=== PATIENT | female | born 1935 | race Caucasian/White ===

== ENCOUNTER 2019-11-19 10:30 | Inpatient (IN) | payer MEDICARE, MEDICAID, SELFPAY ==
[2019-11-19] VITALS (40 sets, daily range): BP systolic 96–168; BP diastolic 51–150; PULSE 50–62; RESP 13–29; TEMP 36.3–37.7; O2SAT 83–99; BMI 35.3
--- NOTE | ~2019-11-19 | XR_ITS ---
EXAMINATION: XR chest 1V portable DATE: 11/19/2019 11:39 INDICATION: Shortness of breath. TECHNIQUE: A single frontal view of the chest was obtained. COMPARISON: Chest single view 07/09/2019, CT abdomen and pelvis 05/22/2019 FINDINGS: There is chronic elevation of right hemidiaphragm. There are airspace opacities in the mid and lower lung zones with a perihilar predominance. There are small pleural effusions. No pneumothora x. Cardiomegaly is noted. IMPRESSION: 1. Airspace opacities in the mid and lower lung zones with a perihilar predominance, consistent with pulmonary edema or less likely pneumonia. 2. Small pleural effusions. 3. Cardiomegaly. Reviewed, dictated and finalized at location A. IMPRESSION: 1. Airspace opacities in the mid and lower lung zones with a perihilar predomin ance, consistent with pulmonary edema or less likely pneumonia. 2. Small pleural effusions. 3. Cardiomegaly.
--- NOTE | 2019-11-19 10:40 | ECG_ITS ---
Measurements Intervals Burt Rate: 59 P: ID: 0 QRS: 38 QRSD: 164 T: -16 QT: 473 QTc: 470 Interpretive Statements ATRIAL FLUTTER WITH SLOW VENTRICULAR RESPONSE RIGHT BUNDLE BRANCH BLOCK BASELINE ARTIFACT- I, II, III, AVR, AVL, AVF, V1-V3 ABNORMAL ECG Electronically Signed On 11-19-2019 14:08:31 CDT by Dane Timmons D.O.
[2019-11-19] MEDS: methylPREDNISolone SOD SUCC 125 MG VIAL 80 MG IV PUSH (10:45)
--- NOTE | 2019-11-19 10:45 | ED.GENADULT ---
HPI - General Adult General Chief complaint: Shortness of Breath/Dyspnea <Mau España PA-C - Last Filed: 11/19/19 12:41> Stated complaint: SOB <Mau España PA-C - Last Filed: 11/19/19 12:41> Time Seen by Provider: 11/19/19 10:31 <NEGRA Franz Last Filed: 11/19/19 12:41> Source: patient, EMS and old records reviewed <NEGRA Franz Last Filed: 11/19/19 12:41> Mode of arrival: EMS <NEGRA Franz Last Filed: 11/19/19 12:41> Limitations: clinical condition <NEGRA Franz Last Filed: 11/19/19 12:41> History of Present Illness HPI narrative: Patient is an 84-year-old female sent over from a long-term for evaluation of dyspnea patient with history of COPD and home oxygen use reportedly staff went into the room today found the patient to be dyspneic having difficulty breathing and speaking. On arrival patient on high flow O2 still having difficulty moving oxygen patient denying any pain. Patient denies URI symptoms. On arrival patient in acute respiratory distress. Patient is a DNR. Patient has had similar occurrences with heart failure and hypercarbia in the past secondary to heart failure and COPD <NEGRA Franz Last Filed: 11/19/19 12:41> Related Data Home medications: Home Medications Medication Instructions Recorded Confirmed GlucaGen HypoKit 1 mg SUBCUT Q20M PRN 07/04/19 07/09/19 Pricilla See Rx Instructions .ROUTE .COMPLEX 07/04/19 07/09/19 Metamucil 1 tbsp PO DAILY 07/04/19 07/09/19 Xarelto 20 mg PO QPM 07/04/19 07/09/19 acetaminophen [Tylenol] 650 mg PO QID PRN 07/04/19 07/09/19 amiodarone 200 mg PO DAILY 07/04/19 07/09/19 atorvastatin 20 mg PO HS 07/04/19 07/09/19 baclofen 10 mg PO BID 07/04/19 07/09/19 bumetanide 1 mg PO DAILY 07/04/19 07/09/19 cholecalciferol (vitamin D3) 1,000 unit PO DAILY 07/04/19 07/09/19 [Vitamin D3] fluticasone propionate 1 spray INTRANASAL DAILY 07/04/19 07/09/19 gabapentin 100 mg PO TID 07/04/19 07/09/19 gabapentin 800 mg PO TID 07/04/19 07/09/19 loratadine 10 mg PO HS 07/04/19 07/09/19 metoprolol succinate 50 mg PO DAILY 07/04/19 07/09/19 multivitamin with minerals [Daily 1 tablet PO DAILY 07/04/19 07/09/19 Multivitamin-Minerals] pantoprazole 40 mg PO QAM 07/04/19 07/09/19 polyethylene glycol 3350 17 g PO DAILY 07/04/19 07/09/19 potassium chloride 40 meq PO DAILY 07/04/19 07/09/19 ropinirole 0.5 mg PO HS 07/04/19 07/09/19 <Mau España PA-C - Last Filed: 11/19/19 12:41> Allergies/adverse reactions: Allergies Allergy/AdvReac Type Severity Reaction Status Date / Time Sulfa (Sulfonamide Allergy Unknown Unknown Verified 11/19/19 10:49 Antibiotics) sulfamethizole Allergy Unknown Unknown Verified 11/19/19 10:49 sulfamethoxazole Allergy Unknown Unknown Verified 11/19/19 10:49 tramadol Allergy Unknown Unknown Verified 11/19/19 10:49 trimethoprim Allergy Unknown Unknown Verified 11/19/19 10:49 <Mau España PA-C - Last Filed: 11/19/19 12:41> Review of Systems Review of Systems: Narrative: Limited due to clinical condition Denies chest pain abdominal pain nausea vomiting or fever <Mau España PA-C - Last Filed: 11/19/19 12:41> Respiratory: Respiratory: Reports dyspnea and Reports wheezing <Mau España PA-C - Last Filed: 11/19/19 12:41> [facility] Past Medical History Medical History: Medical History (HFpEF) heart failure with preserved ejection fraction A-fib Angina at rest Aortic valve stenosis, acquired Bronchitis Cataracts, bilateral CHF (congestive heart failure) Diastolic Chronic atrial fibrillation, unspecified Persistent Colon cancer COPD (chronic obstructive pulmonary disease) Diverticulitis DVT (deep venous thrombosis) Falls GERD (gastroesophageal reflux disease) H/O coronary angiogram 2017: small vessel disease only HTN (hypertension) Hx of malignant neopla
[2019-11-19 11:05] LABS: Basophils Absolute Auto 0.1 K/mm3 (0.0-0.1); Basophils Percent Auto 0.6 % (0.2-1.2); Eosinophils Absolute Auto 0.1 K/mm3 (0-0.3); Eosinophils Percent Auto 0.4 % (0-4.4); Hematocrit 38.8 % (37.0-47.0); Hemoglobin 11.3 g/dL (12.0-15.0); Immature Granulocyte Absolute 0.11 K/mm3 (0.00-0.031); Immature Granulocyte Percent A 0.9 % (0-0.5); Lymphocytes Absolute Auto 2.31 K/mm3 (0.9-3.2); Lymphocytes Percent Auto 18.7 % (18.3-44.2); Mean Corpuscular HGB Conc 29.1 g/dl (32-36); Mean Corpuscular Hemoglobin 28.5 pg (26-34); Mean Platelet Volume 10.5 fl (7.4-10.4); Monocytes Absolute Auto 1.4 K/mm3 (0.1-0.6); Monocytes Percent Auto 11.5 % (2.6-8.5); Neutrophils Absolute Auto 8.4 K/mm3 (1.3-6.7); Neutrophils Percent Auto 67.9 % (45.5-73.1); Platelet Count Result 242 k/mm3 (150-375); Red Blood Count 3.96 M/mm3 (4.2-5.4); Red Cell Distribution Width 17.1 % (11.5-14.5); White Blood Count 12.3 K/mm3 (4.5-10.0)
[2019-11-19 11:12] LABS: Anisocytosis 1+ (NORMAL); Hypochromasia 1+ (NORMAL); Platelet Estimate Adequate (Adequate); Stomatocytes 1+ (NORMAL)
[2019-11-19 11:17] LABS: INR 1.6; Partial Thromboplastin Time 33.6 SECONDS (22.3-36.8)
[2019-11-19 11:18] LABS: Blood Urea Nitrogen 22 mg/dL (7-17); Calcium 8.5 mg/dL (8.4-10.2); Carbon Dioxide 33 mmol/L (22-30); Chloride 93 mmol/L (98-107); Estimated CRCL calculation 61 ml/min; Estimated Glomerular Filt Rate > 60; Glucose 278 mg/dL (65-105); Lactic Acid Reflex 3.3 mmol/L (0.7-2.1); Potassium 4.7 mmol/L (3.4-5.0); Sodium 136 mmol/L (137-145)
[2019-11-19 11:21] LABS: Alveolar/Arterial O2 Gradient 378.2 mmHg; Base Excess ABG -4.2 mEq/l (+/-2.0); Carboxyhemoglobin 0.8 % THb (0-2.0); Fractional Inspired Oxygen 80 %; HCO3 ABG 26.5 mEq/l (22.0-26.0); Methemoglobin ABG 0.2 %THb (0-1.5); Oxygen Content ABG 16.5 %vol (16.0-22.0); Oxygen Saturation ABG 95.7 % (95.0-100.0); Oxyhemoglobin 95.4 % THb (90.0-100.0); PO2 ABG 105.9 mmHg (80.0-100.0); PO2 FiO2 Ratio Arterial Blood 1.32 %; Reduced Hemoglobin 3.6 %THb (0-5.0); Total Hemoglobin 12.2 g/dL (12.0-18.0)
[2019-11-19 11:30] LABS: NT Pro B Type Natriuretic Pept 4670 PG/ML (5-100); Troponin I 0.012 ng/mL (0.000-0.034)
[2019-11-19 11:39] LABS: pH ABG 7.127 (7.350-7.450)
[2019-11-19 11:40] LABS: Modified Allen's Test Pass; PCO2 ABG 82.2 mmHg (35.0-45.0); Site Drawn RIGHT RADIAL
[2019-11-19 11:41] LABS: Device NON-REBREATHER MASK
[2019-11-19 11:45] LABS: Alanine Aminotransferase 79 U/L (4-35); Albumin Level 4.3 g/dL (3.5-5.1); Alkaline Phosphatase 88 U/L (38-126); Aspartate Amino Transferase 84 U/L (14-36); Bilirubin,Total 0.9 mg/dL (0.2-1.3)
[2019-11-19] MEDS: FUROSEMIDE INJ 40 MG/4 ML VIAL IV PUSH (12:00)
[2019-11-19 12:10] LABS: CRP 1.1 mg/dL (<1.0); Lactate Dehydrogenase 783 U/L (313-618)
[2019-11-19 14:02] LABS: Reflex Lactic Acid Yes or No Add Lactic
[2019-11-19 15:42] LABS: Add Urine Microscopic? YES; Appearance Urine Clear (Clear); Bacteria Urine 1+ /hpf; Bilirubin Urine Negative (Negative); Blood Urine Negative (Negative); Color Urine Yellow (Yellow); Glucose Urine UA 3+ mg/dL (Negative); Hyaline Casts Urine 20-29 /lpf; Ketones Urine Negative (Negative); Leukocyte Esterase Ur Negative LEU/UL (Negative); Mucus Urine Rare /lpf; Nitrate Urine Negative (Negative); Protein Urine 2+ mg/dL (Negative); RBC Urine 0-2 /hpf (0-2); Specific Grav Ur 1.011 (1.001-1.035); Squamous Epithelial Cell Urine Rare /hpf (Few); Urobilinogen Urine Negative mg/dL (<2.0); WBC Urine 0-3 /hpf
[2019-11-19 16:18] LABS: Lactic Acid 3.5 mmol/L (0.7-2.1)
[2019-11-19 16:44] LABS: Glucose Point of Care 140 (65-105)
[2019-11-19 17:18] LABS: Base Excess ABG 6.3 mEq/l (+/-2.0); Carboxyhemoglobin 0.3 % THb (0-2.0); Fractional Inspired Oxygen 40 %; HCO3 ABG 32.5 mEq/l (22.0-26.0); Methemoglobin ABG 0.3 %THb (0-1.5); Oxygen Content ABG 15.7 %vol (16.0-22.0); Oxygen Saturation ABG 91.5 % (95.0-100.0); Oxyhemoglobin 91.2 % THb (90.0-100.0); PCO2 ABG 54.3 mmHg (35.0-45.0); PO2 ABG 62.8 mmHg (80.0-100.0); PO2 FiO2 Ratio Arterial Blood 1.57 %; Reduced Hemoglobin 8.2 %THb (0-5.0); Total Hemoglobin 12.2 g/dL (12.0-18.0); pH ABG 7.395 (7.350-7.450)
[2019-11-19 17:19] LABS: Device HIGH FLOW THERAPY; Site Drawn LEFT BRACHIAL
--- NOTE | 2019-11-19 21:45 | PM.IMHP ---
H&P: HPI History of Present Illness Chief complaint: Shortness of breath. Narrative: Sole Al is female with multiple medical problems including chronic respiratory failure, critical aortic valve stenosis, diastolic congestive heart failure, chronic atrial fibrillation, and several other comorbidities who presented to the emergency department earlier this morning via EMS from [facility] with complaints of shortness of breath. The patient is alert and oriented x4 at the time my evaluation, but she was confused earlier this morning, presumably due to hypercarbia. As such, she is not able to provide me with much in the way of history regarding what happened this morning. According to the EMS run report, the patient refused breakfast this morning and when they went to check on her she was apparently having difficulty breathing, was cool, clammy, and diaphoretic. Her ABG on arrival to the emergency department demonstrated a pH of 7.127 and pCO2 of 82.2. Because she is now a person under investigation, and per hospital policy, we are unable to use a BiPAP, she has been started on Airvo high-flow nasal cannula. Repeat blood gas did show improvement in her pCO2. At the time my evaluation, she reports that her shortness of breath is somewhat improved. She denies fever, chills, and sweats. She has not had a headache. She denies sinus congestion, rhinorrhea, otalgia, and odynophagia. Earlier today she had mild chest tightness due to work of breathing, but that has improved somewhat. She has had a mild cough, but is nonproductive. She has chronic edema, but has been worse recently. She believes that is due to the fact that she is no longer wearing compression socks. Her appetite has been good and she denies nausea and vomiting. No diarrhea. No dysuria. She denies recent travel and sick contacts. Review of Systems Review of Systems: Narrative: All systems were reviewed and are unremarkable except as documented in the HPI. [facility] Past Medical History Medical History (Updated 11/20/19 @ 00:55 by Lenore Santana PA-C) (HFpEF) heart failure with preserved ejection fraction Chronic atrial fibrillation On amiodarone and metoprolol. Anticoagulated with Xarelto. Colon cancer COPD (chronic obstructive pulmonary disease) Critical aortic valve stenosis With a valve area of 0.6 centimeter squared. She continues to decline surgical intervention. Diverticulitis DVT (deep venous thrombosis) GERD (gastroesophageal reflux disease) H/O coronary angiogram 2017: small vessel disease only Hyperlipidemia Hypertension, essential Obstructive sleep apnea treated with BiPAP Peripheral neuropathy Restless leg syndrome Type 2 diabetes mellitus Hemoglobin A1c was 5.8% in June 2019. Urinary incontinence Surgical History Surgical History H/O hysterectomy for benign disease History of hysterectomy History of partial colectomy History of spinal surgery History of tonsillectomy Hx of cataract removal with insertion of prosthetic lens Family History Family History Sibling Diabetes mellitus Patient's sister is Patient's brother is Family history of cardiovascular disease Acute myocardial infarction Family history of rheumatic fever Father Patient's father is Mother Acute myocardial infarction, Onset Age: 71 Other Family history of arthritis Family history of malignant neoplasm Family history of rheumatoid arthritis Hypertension Social History Social History (Updated 11/20/19 @ 01:03 by Lenore Santana PA-C) Social History: The patient is . She is a resident at [facility]. She has 4 children, 1 in his 30s by electrocution. 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 She
[2019-11-19 22:51] LABS: Lactic Acid 2.8 mmol/L (0.7-2.1)
[2019-11-20] VITALS (17 sets, daily range): BP systolic 105–132; BP diastolic 48–85; PULSE 59–90; RESP 20–26; TEMP 36.7–37.3; O2SAT 95–100
[2019-11-20 03:35] LABS: Alveolar/Arterial O2 Gradient 216.2 mmHg; Base Excess ABG 11.8 mEq/l (+/-2.0); Fractional Inspired Oxygen 50 %; HCO3 ABG 38.4 mEq/l (22.0-26.0); Oxygen Content ABG 17.2 %vol (16.0-22.0); Oxygen Saturation ABG 94.7 % (95.0-100.0); Oxyhemoglobin 93.8 % THb (90.0-100.0); PCO2 ABG 59.5 mmHg (35.0-45.0); PO2 ABG 73.4 mmHg (80.0-100.0); PO2 FiO2 Ratio Arterial Blood 1.47 %; pH ABG 7.428 (7.350-7.450)
[2019-11-20 03:37] LABS: Device HIGH FLOW THERAPY; Modified Allen's Test Pass; Site Drawn LEFT RADIAL
[2019-11-20] MEDS: ACETAMINOPHEN 325 MG TABLET 650 MG PO ×2 (04:03→22:36)
[2019-11-20 04:40] LABS: Hemoglobin 11.1 g/dL (12.0-15.0); Mean Corpuscular Volume 93.4 fl (80-100); Mean Platelet Volume 10.1 fl (7.4-10.4); Platelet Count Result 221 k/mm3 (150-375); Red Blood Count 3.96 M/mm3 (4.2-5.4); White Blood Count 7.4 K/mm3 (4.5-10.0)
[2019-11-20 05:07] LABS: Lactic Acid 1.6 mmol/L (0.7-2.1)
[2019-11-20 05:14] LABS: Alanine Aminotransferase 76 U/L (4-35); Alkaline Phosphatase 86 U/L (38-126); Aspartate Amino Transferase 64 U/L (14-36); Bilirubin,Total 0.7 mg/dL (0.2-1.3); Blood Urea Nitrogen 20 mg/dL (7-17); Calcium 8.9 mg/dL (8.4-10.2); Carbon Dioxide > 40 mmol/L (22-30); Chloride 93 mmol/L (98-107); Estimated CRCL calculation 69 ml/min; Estimated Glomerular Filt Rate > 60; Glucose 124 mg/dL (65-105); Magnesium 1.8 mg/dL (1.6-2.3); Phosphorus 3.3 mg/dL (2.5-4.5); Potassium 4.1 mmol/L (3.4-5.0); Sodium 139 mmol/L (137-145)
[2019-11-20] MEDS: BACLOFEN 10 MG TABLET PO ×2 (09:03→18:32)
[2019-11-20] MEDS: BUMETANIDE INJ 1 MG/4 ML VIAL IV PUSH ×2 (09:03→18:28)
[2019-11-20] MEDS: AMIODARONE HCL 200 MG TABLET PO (09:04)
[2019-11-20] MEDS: PANTOPRAZOLE 40 MG TABLET PO (09:05)
[2019-11-20] MEDS: METOPROLOL SUCCINATE EXT REL 50 MG TABCR PO (09:05)
[2019-11-20] MEDS: LORATADINE 10 MG TABLET PO (09:05)
[2019-11-20] MEDS: THERAPEUTIC MULTIVITAMINS/MINERALS TAB (*BKC) 1 TABLET PO (09:05)
[2019-11-20] MEDS: CHOLECALCIFEROL 1,000 UNIT TABLET 1000 UNITS PO (09:06)
[2019-11-20] MEDS: FLUTICASONE PROPIONATE 0.05% NA SPR 16 GM BTL (*BKC) 1 SPRAY NASAL (09:06)
[2019-11-20] MEDS: GABAPENTIN 300 MG CAPSULE 900 MG PO ×3 (09:06→18:28)
[2019-11-20] MEDS: PSYLLIUM POWDER PACKET 1 PACKET PO (09:07)
[2019-11-20 09:38] LABS: Glucose Point of Care 113 (65-105)
[2019-11-20 14:13] LABS: Glucose Point of Care 103 (65-105)
--- NOTE | 2019-11-20 15:33 | PM.IMPN ---
Progress Note: A&P Assessment and Plan (1) Acute respiratory failure with hypoxia and hypercarbia: Code(s): J96.01 - Acute respiratory failure with hypoxia; J96.02 - Acute respiratory failure with hypercapnia Status: Acute Assessment and Plan: Presumably due to congestive heart failure exacerbation, but cannot rule out underlying pneumonia. She will be empirically treated with antibiotics. Patient also carries a diagnosis of COPD, however was never really a smoker. Per hospital policy, she was unable to be placed on BiPAP as she is a person under investigation for COVID-19. Repeat blood gas significantly improved; continue Airvo. 11/20/19 15:33 Patient 84-year-old female with history COPD congestive heart failure severe aortic stenosis patient is a resident of nursing and was quite somnolent and confused hypoxic patient was sent to emergency department for further evaluation he was found to have hypercapnic respiratory failure with pCO2 of 82.2 with pH of 7.127 there was a concern the patient may be positive for COVID-19 there for patient was not placed on BiPAP other high-flow nasal cannula this has improved her oxygenation and her mentation, there is no obvious risk factor for COVID-19 best of knowledge she is not been and exposed to the infection, shes does have not fever or any travel, test is pending, patient is being monitor in ICU with isolation, most likely her shortness of breath is secondary to acute on chronic systolic dysfunction, suspected pneumonia, as well as acute on chronic hypercapnic respiratory failure, patient is given Rocephin and doxycycline, being diuresed with Lasix, and Solu-Medrol as well as updraft will continue to monitor. (2) Acute exacerbation of CHF (congestive heart failure): Code(s): I50.9 - Heart failure, unspecified Status: Acute Assessment and Plan: Cautious IV diuresis given critical aortic valve stenosis. Monitor volume status closely. (3) Obstructive sleep apnea treated with BiPAP: Code(s): G47.33 - Obstructive sleep apnea (adult) (pediatric) Status: Acute Assessment and Plan: As above, unable to placed on BiPAP. (4) Critical aortic valve stenosis: Code(s): I35.0 - Nonrheumatic aortic (valve) stenosis Status: Acute Assessment and Plan: Patient has declined surgical intervention. (5) Chronic atrial fibrillation: Code(s): I48.20 - Chronic atrial fibrillation, unspecified Status: Acute Assessment and Plan: She is rate controlled. Continue amiodarone and metoprolol. She is on long-term anticoagulation with Xarelto. (6) Type 2 diabetes mellitus: Code(s): E11.9 - Type 2 diabetes mellitus without complications Status: Acute Assessment and Plan: Well controlled with recent hemoglobin A1c of 5.8%. Subjective Date/time seen: 11/20/19 15:33 Patient 84-year-old female with history COPD congestive heart failure severe aortic stenosis patient is a resident of nursing and was quite somnolent and confused hypoxic patient was sent to emergency department for further evaluation he was found to have hypercapnic respiratory failure with pCO2 of 82.2 with pH of 7.127 there was a concern the patient may be positive for COVID-19 there for patient was not placed on BiPAP other high-flow nasal cannula this has improved her oxygenation and her mentation, there is no obvious risk factor for COVID-19 best of knowledge she is not been and exposed to the infection, shes does have not fever or any travel, test is pending, patient is being monitor in ICU with isolation, most likely her shortness of breath is secondary to acute on chronic systolic dysfunction, suspected pneumonia, as well as acute on chronic hypercapnic respiratory failure, patient is given Rocephin and doxycycline, being diuresed with Lasix, and Solu-Medrol as well as updraft will continue to monitor. Yasmin
[2019-11-20] MEDS: methylPREDNISolone SOD SUCC 125 MG VIAL 60 MG IV PUSH (18:28)
[2019-11-20 18:31] LABS: Glucose Point of Care 110 (65-105)
--- NOTE | 2019-11-20 18:49 | PC.NURSE ---
Was notified by Sayra Awad director of ICU that covid test came back negative.
[2019-11-20] MEDS: POTASSIUM CHLORIDE 20 MEQ TABLET.ER 40 MEQ PO (21:26)
[2019-11-20] MEDS: RIVAROXABAN 20 MG TABLET PO (21:27)
[2019-11-20] MEDS: polyethylene glycoL 3350 17 GM POWD.PACK PO (21:28)
[2019-11-21] VITALS (21 sets, daily range): BP systolic 105–147; BP diastolic 60–92; PULSE 67–93; RESP 12–22; TEMP 35.7–36.6; O2SAT 93–100
[2019-11-21 04:43] LABS: Hematocrit 36.1 % (37.0-47.0); Mean Corpuscular HGB Conc 30.5 g/dl (32-36); Mean Corpuscular Hemoglobin 28.7 pg (26-34); Mean Corpuscular Volume 94.3 fl (80-100); Mean Platelet Volume 10.1 fl (7.4-10.4); Platelet Count Result 210 k/mm3 (150-375); Red Blood Count 3.83 M/mm3 (4.2-5.4); Red Cell Distribution Width 17.5 % (11.5-14.5); White Blood Count 8.1 K/mm3 (4.5-10.0)
[2019-11-21 05:09] LABS: Blood Urea Nitrogen 25 mg/dL (7-17); Calcium 8.8 mg/dL (8.4-10.2); Carbon Dioxide > 40 mmol/L (22-30); Chloride 91 mmol/L (98-107); Estimated CRCL calculation 50 ml/min; Estimated Glomerular Filt Rate > 60; Glucose 161 mg/dL (65-105); Potassium 4.4 mmol/L (3.4-5.0); Sodium 140 mmol/L (137-145)
[2019-11-21] MEDS: GABAPENTIN 300 MG CAPSULE 900 MG PO ×3 (09:15→17:05)
[2019-11-21] MEDS: AMIODARONE HCL 200 MG TABLET PO (09:15)
[2019-11-21] MEDS: LORATADINE 10 MG TABLET PO (09:16)
[2019-11-21] MEDS: THERAPEUTIC MULTIVITAMINS/MINERALS TAB (*BKC) 1 TABLET PO (09:16)
[2019-11-21] MEDS: METOPROLOL SUCCINATE EXT REL 50 MG TABCR PO (09:16)
[2019-11-21] MEDS: BACLOFEN 10 MG TABLET PO ×2 (09:17→17:08)
[2019-11-21] MEDS: PANTOPRAZOLE 40 MG TABLET PO (09:17)
[2019-11-21] MEDS: CHOLECALCIFEROL 1,000 UNIT TABLET 1000 UNITS PO (09:17)
[2019-11-21] MEDS: BUMETANIDE INJ 1 MG/4 ML VIAL IV PUSH (09:19)
[2019-11-21] MEDS: PSYLLIUM POWDER PACKET 1 PACKET PO (09:20)
[2019-11-21 09:24] LABS: Glucose Point of Care 135 (65-105)
[2019-11-21] MEDS: FLUTICASONE PROPIONATE 0.05% NA SPR 16 GM BTL (*BKC) 1 SPRAY NASAL (09:27)
[2019-11-21] MEDS: methylPREDNISolone SOD SUCC 125 MG VIAL 60 MG IV PUSH (09:28)
[2019-11-21 12:47] LABS: Glucose Point of Care 175 (65-105)
--- NOTE | 2019-11-21 13:09 | PM.IMPN ---
Progress Note: A&P Assessment and Plan (1) Acute respiratory failure with hypoxia and hypercarbia: Code(s): J96.01 - Acute respiratory failure with hypoxia; J96.02 - Acute respiratory failure with hypercapnia Status: Acute Assessment and Plan: Presumably due to congestive heart failure exacerbation, but cannot rule out underlying pneumonia. She will be empirically treated with antibiotics. Patient also carries a diagnosis of COPD, however was never really a smoker. Per hospital policy, she was unable to be placed on BiPAP as she is a person under investigation for COVID-19. Repeat blood gas significantly improved; continue Airvo. 11/21/19 13:09 Patient 84-year-old female with history COPD congestive heart failure severe aortic stenosis patient is a resident of nursing and was quite somnolent and confused hypoxic patient was sent to emergency department for further evaluation he was found to have hypercapnic respiratory failure with pCO2 of 82.2 with pH of 7.127 there was a concern the patient may be positive for COVID-19 there for patient was not placed on BiPAP other high-flow nasal cannula this has improved her oxygenation and her mentation, there is no obvious risk factor for COVID-19 best of knowledge she is not been and exposed to the infection, shes does have not fever or any travel, test is pending, patient is being monitor in ICU with isolation, most likely her shortness of breath is secondary to acute on chronic systolic dysfunction, suspected pneumonia, as well as acute on chronic hypercapnic respiratory failure, patient is given Rocephin and doxycycline, being diuresed with Lasix, and Solu-Medrol as well as updraft will continue to monitor. Today patient is COVID test is negative patient is out of ICU, off high-flow oxygen on nasal cannula, is feeling much better not as short of breath as when she arrived, will stop IV Bumex and switch her over to her home dose of Bumex and monitor, denies any fever or chills. Will have a PT OT evaluate the patient patient will benefit going to acute rehab (2) Acute exacerbation of CHF (congestive heart failure): Code(s): I50.9 - Heart failure, unspecified Status: Acute Assessment and Plan: Cautious IV diuresis given critical aortic valve stenosis. Monitor volume status closely. Patient clinical improving will switche over to her home dose of Bumex 1 mg PO daily. (3) Obstructive sleep apnea treated with BiPAP: Code(s): G47.33 - Obstructive sleep apnea (adult) (pediatric) Status: Acute Assessment and Plan: As above, unable to placed on BiPAP. (4) Critical aortic valve stenosis: Code(s): I35.0 - Nonrheumatic aortic (valve) stenosis Status: Acute Assessment and Plan: Patient has declined surgical intervention. (5) Chronic atrial fibrillation: Code(s): I48.20 - Chronic atrial fibrillation, unspecified Status: Acute Assessment and Plan: She is rate controlled. Continue amiodarone and metoprolol. She is on long-term anticoagulation with Xarelto. (6) Type 2 diabetes mellitus: Code(s): E11.9 - Type 2 diabetes mellitus without complications Status: Acute Assessment and Plan: Well controlled with recent hemoglobin A1c of 5.8%. Subjective Date/time seen: 11/21/19 13:09 Patient 84-year-old female with history COPD congestive heart failure severe aortic stenosis patient is a resident of nursing and was quite somnolent and confused hypoxic patient was sent to emergency department for further evaluation he was found to have hypercapnic respiratory failure with pCO2 of 82.2 with pH of 7.127 there was a concern the patient may be positive for COVID-19 there for patient was not placed on BiPAP other high-flow nasal cannula this has improved her oxygenation and her mentation, there is no obvious risk factor for COVID-19 best of knowledge she is not been and exp
[2019-11-21 18:31] LABS: Glucose Point of Care 158 (65-105)
[2019-11-21 21:42] LABS: Glucose Point of Care 166 (65-105)
[2019-11-21] MEDS: POTASSIUM CHLORIDE 20 MEQ TABLET.ER 40 MEQ PO (21:52)
[2019-11-21] MEDS: RIVAROXABAN 20 MG TABLET PO (21:53)
[2019-11-21] MEDS: polyethylene glycoL 3350 17 GM POWD.PACK PO (21:53)
[2019-11-22] VITALS (14 sets, daily range): BP systolic 124–144; BP diastolic 61–88; PULSE 62–107; RESP 18–24; TEMP 36.3–37; O2SAT 96–99; BMI 34.4
[2019-11-22 04:43] LABS: Hematocrit 34.8 % (37.0-47.0); Hemoglobin 10.7 g/dL (12.0-15.0); Mean Corpuscular HGB Conc 30.7 g/dl (32-36); Mean Corpuscular Hemoglobin 29.1 pg (26-34); Mean Corpuscular Volume 94.6 fl (80-100); Mean Platelet Volume 10.1 fl (7.4-10.4); Platelet Count Result 235 k/mm3 (150-375); Red Blood Count 3.68 M/mm3 (4.2-5.4); Red Cell Distribution Width 17.1 % (11.5-14.5); White Blood Count 7.4 K/mm3 (4.5-10.0)
[2019-11-22 05:07] LABS: Blood Urea Nitrogen 26 mg/dL (7-17); Carbon Dioxide > 40 mmol/L (22-30); Chloride 94 mmol/L (98-107); Estimated CRCL calculation 44 ml/min; Estimated Glomerular Filt Rate > 60; Glucose 134 mg/dL (65-105); Potassium 4.4 mmol/L (3.4-5.0); Sodium 139 mmol/L (137-145)
[2019-11-22 08:40] LABS: Glucose Point of Care 100 (65-105)
[2019-11-22] MEDS: AMIODARONE HCL 200 MG TABLET PO (09:07)
[2019-11-22] MEDS: FLUTICASONE PROPIONATE 0.05% NA SPR 16 GM BTL (*BKC) 1 SPRAY NASAL (09:08)
[2019-11-22] MEDS: BACLOFEN 10 MG TABLET PO ×2 (09:08→17:32)
[2019-11-22] MEDS: CHOLECALCIFEROL 1,000 UNIT TABLET 1000 UNITS PO (09:08)
[2019-11-22] MEDS: LORATADINE 10 MG TABLET PO (09:08)
[2019-11-22] MEDS: BUMETANIDE 1 MG TABLET PO (09:08)
[2019-11-22] MEDS: THERAPEUTIC MULTIVITAMINS/MINERALS TAB (*BKC) 1 TABLET PO (09:08)
[2019-11-22] MEDS: METOPROLOL SUCCINATE EXT REL 50 MG TABCR PO (09:08)
[2019-11-22] MEDS: PANTOPRAZOLE 40 MG TABLET PO (09:08)
[2019-11-22] MEDS: GABAPENTIN 300 MG CAPSULE 900 MG PO ×3 (09:08→17:31)
[2019-11-22] MEDS: PSYLLIUM POWDER PACKET 1 PACKET PO (09:09)
[2019-11-22] MEDS: methylPREDNISolone SOD SUCC 125 MG VIAL 60 MG IV PUSH (09:09)
[2019-11-22 12:08] LABS: NT Pro B Type Natriuretic Pept 4040 PG/ML (5-100)
[2019-11-22 12:27] LABS: Glucose Point of Care 177 (65-105)
--- NOTE | 2019-11-22 13:40 | PCDIET ---
This patient, Sole Al, was transferred to [[id number]] on 11/22/19 at 1340. Personal belongings sent with patient. Belongings list checked and signed with receiving [ ]. Report given to [BRYN PASCAL]. Appropriate documentation sent with patient.
--- NOTE | 2019-11-22 13:55 | PM.IMPN ---
Progress Note: A&P Assessment and Plan (1) Acute respiratory failure with hypoxia and hypercarbia: Code(s): J96.01 - Acute respiratory failure with hypoxia; J96.02 - Acute respiratory failure with hypercapnia Status: Acute Assessment and Plan: Presumably due to congestive heart failure exacerbation, but cannot rule out underlying pneumonia. She will be empirically treated with antibiotics. Patient also carries a diagnosis of COPD, however was never really a smoker. Per hospital policy, she was unable to be placed on BiPAP as she is a person under investigation for COVID-19. Repeat blood gas significantly improved; continue Airvo. 11/22/19 13:55 Patient 84-year-old female with history COPD congestive heart failure severe aortic stenosis patient is a resident of nursing and was quite somnolent and confused hypoxic patient was sent to emergency department for further evaluation he was found to have hypercapnic respiratory failure with pCO2 of 82.2 with pH of 7.127 there was a concern the patient may be positive for COVID-19 there for patient was not placed on BiPAP other high-flow nasal cannula this has improved her oxygenation and her mentation, there is no obvious risk factor for COVID-19 best of knowledge she is not been and exposed to the infection, shes does have not fever or any travel, test is pending, patient is being monitor in ICU with isolation, most likely her shortness of breath is secondary to acute on chronic systolic dysfunction, suspected pneumonia, as well as acute on chronic hypercapnic respiratory failure, patient is given Rocephin and doxycycline, being diuresed with Lasix, and Solu-Medrol as well as updraft will continue to monitor. Today patient is COVID test is negative patient is out of ICU, off high-flow oxygen on nasal cannula, is feeling much better not as short of breath as when she arrived, we stopped IV Bumex and switch her over to her home dose of Bumex and monitor, denies any fever or chills. Patient is also on CPAP while in [place] will respiratory place patient of CPAP while she is here, Will have a PT OT evaluate the patient patient will benefit going to acute rehab (2) Acute exacerbation of CHF (congestive heart failure): Code(s): I50.9 - Heart failure, unspecified Status: Acute Assessment and Plan: Cautious IV diuresis given critical aortic valve stenosis. Monitor volume status closely. Patient clinical improving will switche over to her home dose of Bumex 1 mg PO daily. (3) Obstructive sleep apnea treated with BiPAP: Code(s): G47.33 - Obstructive sleep apnea (adult) (pediatric) Status: Acute Assessment and Plan: As above, unable to placed on BiPAP. (4) Critical aortic valve stenosis: Code(s): I35.0 - Nonrheumatic aortic (valve) stenosis Status: Acute Assessment and Plan: Patient has declined surgical intervention. (5) Chronic atrial fibrillation: Code(s): I48.20 - Chronic atrial fibrillation, unspecified Status: Acute Assessment and Plan: She is rate controlled. Continue amiodarone and metoprolol. She is on long-term anticoagulation with Xarelto. (6) Type 2 diabetes mellitus: Code(s): E11.9 - Type 2 diabetes mellitus without complications Status: Acute Assessment and Plan: Well controlled with recent hemoglobin A1c of 5.8%. Subjective Date/time seen: 11/22/19 13:55 Patient 84-year-old female with history COPD congestive heart failure severe aortic stenosis patient is a resident of nursing and was quite somnolent and confused hypoxic patient was sent to emergency department for further evaluation he was found to have hypercapnic respiratory failure with pCO2 of 82.2 with pH of 7.127 there was a concern the patient may be positive for COVID-19 there for patient was not placed on BiPAP other high-flow nasal cannula this has improved her oxygenation and her ment
--- NOTE | 2019-11-22 14:24 | PC.NURSE ---
Pt transfered from IMU to Med/Surg 3 in room 320-1.
[2019-11-22] MEDS: INSULIN ASPART (*BKC) 100 UNITS/ML SUB-Q (17:34)
[2019-11-22 19:59] LABS: Glucose Point of Care 215 (65-105)
[2019-11-22] MEDS: RIVAROXABAN 20 MG TABLET PO (20:36)
[2019-11-22] MEDS: POTASSIUM CHLORIDE 20 MEQ TABLET.ER 40 MEQ PO (20:36)
[2019-11-22] MEDS: polyethylene glycoL 3350 17 GM POWD.PACK PO (20:36)
[2019-11-22 21:12] LABS: Glucose Point of Care 206 (65-105)
[2019-11-23] VITALS (14 sets, daily range): BP systolic 121–138; BP diastolic 75–84; PULSE 63–104; RESP 18–20; TEMP 35.7–36.7; O2SAT 90–100
[2019-11-23 06:04] LABS: Hematocrit 36.9 % (37.0-47.0); Mean Corpuscular HGB Conc 29.8 g/dl (32-36); Mean Corpuscular Hemoglobin 28.4 pg (26-34); Mean Corpuscular Volume 95.1 fl (80-100); Mean Platelet Volume 9.9 fl (7.4-10.4); Platelet Count Result 249 k/mm3 (150-375); Red Blood Count 3.88 M/mm3 (4.2-5.4); Red Cell Distribution Width 16.8 % (11.5-14.5); White Blood Count 7.8 K/mm3 (4.5-10.0)
[2019-11-23 06:14] LABS: Blood Urea Nitrogen 30 mg/dL (7-17); Calcium 8.8 mg/dL (8.4-10.2); Carbon Dioxide > 40 mmol/L (22-30); Chloride 94 mmol/L (98-107); Estimated CRCL calculation 43 ml/min; Estimated Glomerular Filt Rate > 60; Glucose 123 mg/dL (65-105); Potassium 4.5 mmol/L (3.4-5.0); Sodium 139 mmol/L (137-145)
[2019-11-23] MEDS: GABAPENTIN 300 MG CAPSULE 900 MG PO ×3 (08:35→18:15)
[2019-11-23] MEDS: LORATADINE 10 MG TABLET PO (08:35)
[2019-11-23] MEDS: FLUTICASONE PROPIONATE 0.05% NA SPR 16 GM BTL (*BKC) 1 SPRAY NASAL (08:38)
[2019-11-23] MEDS: BACLOFEN 10 MG TABLET PO ×2 (08:39→18:16)
[2019-11-23] MEDS: methylPREDNISolone SOD SUCC 125 MG VIAL 60 MG IV PUSH (08:39)
[2019-11-23] MEDS: METOPROLOL SUCCINATE EXT REL 50 MG TABCR PO (08:40)
[2019-11-23] MEDS: PSYLLIUM POWDER PACKET 1 PACKET PO (08:40)
[2019-11-23] MEDS: PANTOPRAZOLE 40 MG TABLET PO (08:40)
[2019-11-23] MEDS: THERAPEUTIC MULTIVITAMINS/MINERALS TAB (*BKC) 1 TABLET PO (08:45)
[2019-11-23] MEDS: CHOLECALCIFEROL 1,000 UNIT TABLET 1000 UNITS PO (08:45)
[2019-11-23] MEDS: BUMETANIDE 1 MG TABLET PO (08:45)
[2019-11-23] MEDS: AMIODARONE HCL 200 MG TABLET PO (08:45)
[2019-11-23 10:16] LABS: Glucose Point of Care 107 (65-105)
--- NOTE | 2019-11-23 10:52 | PCPTNOTE ---
Spoke w/ Dr Mejia concerning pt being at PLOF and not appropriate for skilled PT. Dr Mejia to DC orders.
--- NOTE | 2019-11-23 10:52 | PCOTNOTE ---
Spoke with physician this date to d/c therapy orders on patient. Patient is at baseline of requiring salvador lift to wheelchair and dependence in self-care tasks. Patient not appropriate for skilled therapy at this time.
[2019-11-23 12:56] LABS: Glucose Point of Care 170 (65-105)
[2019-11-23] MEDS: predniSONE 10 MG TABLET 50 MG PO (14:53)
--- NOTE | 2019-11-23 15:50 | PM.IMPN ---
Progress Note: A&P Assessment and Plan (1) Acute respiratory failure with hypoxia and hypercarbia: Code(s): J96.01 - Acute respiratory failure with hypoxia; J96.02 - Acute respiratory failure with hypercapnia Status: Acute Assessment and Plan: Presumably due to congestive heart failure exacerbation, but cannot rule out underlying pneumonia. She will be empirically treated with antibiotics. Patient also carries a diagnosis of COPD, however was never really a smoker. Per hospital policy, she was unable to be placed on BiPAP as she is a person under investigation for COVID-19. Repeat blood gas significantly improved; continue Airvo. 11/23/19 15:50 Patient 84-year-old female with history COPD congestive heart failure severe aortic stenosis patient is a resident of nursing and was quite somnolent and confused hypoxic patient was sent to emergency department for further evaluation he was found to have hypercapnic respiratory failure with pCO2 of 82.2 with pH of 7.127 there was a concern the patient may be positive for COVID-19 there for patient was not placed on BiPAP other high-flow nasal cannula this has improved her oxygenation and her mentation, there is no obvious risk factor for COVID-19 best of knowledge she is not been and exposed to the infection, shes does have not fever or any travel, test is pending, patient is being monitor in ICU with isolation, most likely her shortness of breath is secondary to acute on chronic systolic dysfunction, suspected pneumonia, as well as acute on chronic hypercapnic respiratory failure, patient is given Rocephin and doxycycline, being diuresed with Lasix, and Solu-Medrol as well as updraft will continue to monitor. Today patient is COVID test is negative patient is out of ICU, off high-flow oxygen on nasal cannula, is feeling much better not as short of breath as when she arrived, on 11/20 we stopped IV Bumex and switch her over to her home dose of Bumex and monitor, denies any fever or chills. Patient is also on CPAP while in NH, will have respiratory place patient of CPAP while she is here, Patient is bedbound and unable to participate in PT OT, patient is clinically stable, will discharge patient to NH tomorrow. (2) Acute exacerbation of CHF (congestive heart failure): Code(s): I50.9 - Heart failure, unspecified Status: Acute Assessment and Plan: Cautious IV diuresis given critical aortic valve stenosis. Monitor volume status closely. Patient clinical improving will switche over to her home dose of Bumex 1 mg PO daily. (3) Obstructive sleep apnea treated with BiPAP: Code(s): G47.33 - Obstructive sleep apnea (adult) (pediatric) Status: Acute Assessment and Plan: Patient been using CPAP at night (4) Critical aortic valve stenosis: Code(s): I35.0 - Nonrheumatic aortic (valve) stenosis Status: Acute Assessment and Plan: Patient has declined surgical intervention. (5) Chronic atrial fibrillation: Code(s): I48.20 - Chronic atrial fibrillation, unspecified Status: Acute Assessment and Plan: She is rate controlled. Continue amiodarone and metoprolol. She is on long-term anticoagulation with Xarelto. (6) Type 2 diabetes mellitus: Code(s): E11.9 - Type 2 diabetes mellitus without complications Status: Acute Assessment and Plan: Well controlled with recent hemoglobin A1c of 5.8%. Subjective Date/time seen: 11/23/19 15:50 Patient 84-year-old female with history COPD congestive heart failure severe aortic stenosis patient is a resident of nursing and was quite somnolent and confused hypoxic patient was sent to emergency department for further evaluation he was found to have hypercapnic respiratory failure with pCO2 of 82.2 with pH of 7.127 there was a concern the patient may be positive for COVID-19 there for patient was not placed on BiPAP other high-flow na
[2019-11-23 17:09] LABS: Glucose Point of Care 155 (65-105)
[2019-11-23] MEDS: RIVAROXABAN 20 MG TABLET PO (20:11)
[2019-11-23] MEDS: POTASSIUM CHLORIDE 20 MEQ TABLET.ER 40 MEQ PO (20:11)
[2019-11-23] MEDS: polyethylene glycoL 3350 17 GM POWD.PACK PO (20:11)
[2019-11-23 20:50] LABS: Glucose Point of Care 223 (65-105)
[2019-11-24] VITALS (14 sets, daily range): BP systolic 112–140; BP diastolic 53–72; PULSE 63–96; RESP 16–20; TEMP 36.2–36.9; O2SAT 94–100
[2019-11-24 05:52] LABS: Hematocrit 39.4 % (37.0-47.0); Hemoglobin 11.8 g/dL (12.0-15.0); Mean Corpuscular HGB Conc 29.9 g/dl (32-36); Mean Corpuscular Hemoglobin 28.6 pg (26-34); Mean Corpuscular Volume 95.6 fl (80-100); Mean Platelet Volume 10.4 fl (7.4-10.4); Platelet Count Result 250 k/mm3 (150-375); Red Blood Count 4.12 M/mm3 (4.2-5.4); Red Cell Distribution Width 17.1 % (11.5-14.5)
[2019-11-24 06:24] LABS: Blood Urea Nitrogen 33 mg/dL (7-17); Calcium 8.5 mg/dL (8.4-10.2); Carbon Dioxide 37 mmol/L (22-30); Chloride 97 mmol/L (98-107); Estimated CRCL calculation 43 ml/min; Estimated Glomerular Filt Rate > 60; Glucose 168 mg/dL (65-105); Potassium 4.9 mmol/L (3.4-5.0); Sodium 138 mmol/L (137-145)
[2019-11-24] MEDS: ACETAMINOPHEN 325 MG TABLET 650 MG PO (08:59)
[2019-11-24] MEDS: predniSONE 10 MG TABLET 50 MG PO (09:00)
[2019-11-24] MEDS: PSYLLIUM POWDER PACKET 1 PACKET PO (09:00)
[2019-11-24] MEDS: CHOLECALCIFEROL 1,000 UNIT TABLET 1000 UNITS PO (09:01)
[2019-11-24] MEDS: THERAPEUTIC MULTIVITAMINS/MINERALS TAB (*BKC) 1 TABLET PO (09:01)
[2019-11-24] MEDS: PANTOPRAZOLE 40 MG TABLET PO (09:01)
[2019-11-24] MEDS: BACLOFEN 10 MG TABLET PO ×2 (09:01→17:45)
[2019-11-24] MEDS: GABAPENTIN 300 MG CAPSULE 900 MG PO ×3 (09:01→17:45)
[2019-11-24] MEDS: METOPROLOL SUCCINATE EXT REL 50 MG TABCR PO (09:01)
[2019-11-24] MEDS: LORATADINE 10 MG TABLET PO (09:02)
[2019-11-24] MEDS: AMIODARONE HCL 200 MG TABLET PO (09:03)
[2019-11-24] MEDS: BUMETANIDE 1 MG TABLET PO (09:03)
[2019-11-24] MEDS: FLUTICASONE PROPIONATE 0.05% NA SPR 16 GM BTL (*BKC) 1 SPRAY NASAL (09:03)
[2019-11-24 09:48] LABS: Glucose Point of Care 139 (65-105)
[2019-11-24 11:50] LABS: Glucose Point of Care 196 (65-105)
--- NOTE | 2019-11-24 13:48 | PM.DS ---
DS: Diagnosis Admitting Diagnosis Admitting Diagnosis: Acute respiratory failure with hypoxia Discharge Diagnosis (1) Acute respiratory failure with hypoxia and hypercarbia: Code(s): J96.01 - Acute respiratory failure with hypoxia; J96.02 - Acute respiratory failure with hypercapnia Status: Acute Assessment and Plan: Presumably due to congestive heart failure exacerbation, but cannot rule out underlying pneumonia initially as patient was started on Doxycycline and Rocephin initially and was d/c on 11/22 after 3 days. Patient also given Solu-Medrol during stay. Diuresed with IV Bumex and is now on home Bumex dosage. She is currently satting 100% on 2L O2 [place] which is her home settings. Patient doing well and wishing to go home. COVID 19 testing negative. Continue home CPAP/BiPAP and O2 settings Will do prednisone taper Continue home Bumex Continue other home medications Discharge today back to [facility] for [facility] care Patient bedbound and unsure if getting PT/OT at [facility]; will recommend if able to (2) Acute exacerbation of CHF (congestive heart failure): Code(s): I50.9 - Heart failure, unspecified Status: Acute Assessment and Plan: Patient clinically improved. Some b/l crackles on exam, but minimal. Patient back on home O2 needs. Discharge today on home Bumex Follow up with Cardiology per their instructions (3) Obstructive sleep apnea treated with BiPAP: Code(s): G47.33 - Obstructive sleep apnea (adult) (pediatric) Status: Acute Assessment and Plan: continue home CPAP/BiPAP settings (4) Critical aortic valve stenosis: Code(s): I35.0 - Nonrheumatic aortic (valve) stenosis Status: Acute Assessment and Plan: Patient has declined surgical intervention. (5) Chronic atrial fibrillation: Code(s): I48.20 - Chronic atrial fibrillation, unspecified Status: Acute Assessment and Plan: She is rate controlled. Continue amiodarone and metoprolol. She is on long-term anticoagulation with Xarelto. (6) Type 2 diabetes mellitus: Code(s): E11.9 - Type 2 diabetes mellitus without complications Status: Acute Assessment and Plan: Well controlled with recent hemoglobin A1c of 5.8%. DS: Summary Hospital Course Reason for hospitalization: acute on chronic respiratory failure with hypoxia/hypercarbia; presumed CHF exacerbation vs other etiology Hospital Course: Patient is a 84 yo F with multiple medical problems including chronic respiratory failure, critical aortic valve stenosis, diastolic congestive heart failure, chronic atrial fibrillation, and several other comorbidities who presented to the emergency department on morning of 11/18 via EMS from [facility] with complaints of shortness of breath. Patient was reported to be confused while at the [facility], presumably due to hypercarbia. Patient was refusing breakfast and was apparently having difficulty breathing, cool, clammy and diaphoretic. ABG on arrival showed 7.127, pCO2 82.2. Patient was PUI for COVID and was unable to be placed on BiPAP, but was started on high flow NC. Please see H&P for further detail Presenting VS: Temp Pulse Resp Pulse Ox 98.3 F 54 L 19 98 NRB mask 11/19/19 10:33 11/19/19 10:33 11/19/19 10:33 11/19/19 10:33 BP 154/68 Presenting Pertinent labs: WBC 12.3, PT 19.0, CO2 93, BUN 22, L.A. 3.3 (11/19 1.6), AST 84, ALT 79, LDH 783, troponin 0.012, CRP 1.1, BNP 4670. ABG showed pH 7.127, pCO2 82.2, pO2 1105.9, HCO3 26.5. CBC, coags, CMP, UA otherwise unremarkable. Repeat ABG shows improvement in pH, pCO2. Micro: Covid testing reported to be negative. BC negative after 5 days x2 Imaging: [facility]
[2019-11-24 16:53] LABS: Glucose Point of Care 235 (65-105)
[2019-11-24] MEDS: INSULIN ASPART (*BKC) 100 UNITS/ML SUB-Q (17:45)
[2019-11-24] MEDS: POTASSIUM CHLORIDE 20 MEQ TABLET.ER 40 MEQ PO (21:23)
[2019-11-24] MEDS: RIVAROXABAN 20 MG TABLET PO (21:23)
[2019-11-24] MEDS: polyethylene glycoL 3350 17 GM POWD.PACK PO (21:24)
[2019-11-24 21:44] LABS: Glucose Point of Care 187 (65-105)
== END 2019-11-24 22:12 | DRG 291 ==
LOC: ANHED 12:46 → ANHICU 16:38 → ANHIMU 11-22 00:30 → ANH3MEDSUR 11-22 14:14 → ANHICU 11-25 15:08 → ANHIMU 11-25 15:08
PROVIDERS: Emergency Medicine Emergency Medical Services; Family Medicine; Internal Medicine; Physician Assistant; Admitting Provider Internal Medicine; Emergency Provider Emergency Medicine; Visit Provider Internal Medicine
DX: I11.0 Hypertensive heart disease with heart failure (principal); J96.21 Acute and chronic respiratory failure with hypoxia; J96.22 Acute and chronic respiratory failure with hypercapnia; J18.9 Pneumonia, unspecified organism; I48.19 Other persistent atrial fibrillation; J44.0 Chronic obstructive pulmonary disease with (acute) lower respiratory infection; I50.23 Acute on chronic systolic (congestive) heart failure; G47.33 Obstructive sleep apnea (adult) (pediatric); I35.0 Nonrheumatic aortic (valve) stenosis; G25.81 Restless legs syndrome; K21.9 Gastro-esophageal reflux disease without esophagitis; E11.649 Type 2 diabetes mellitus with hypoglycemia without coma; Z20.828 Contact with and (suspected) exposure to other viral communicable diseases; E11.42 Type 2 diabetes mellitus with diabetic polyneuropathy; E78.5 Hyperlipidemia, unspecified; Z66 Do not resuscitate; E66.9 Obesity, unspecified; Z68.34 Body mass index [BMI] 34.0-34.9, adult; Z99.81 Dependence on supplemental oxygen; Z74.01 Bed confinement status; Z85.038 Personal history of other malignant neoplasm of large intestine; Z86.718 Personal history of other venous thrombosis and embolism; Z90.710 Acquired absence of both cervix and uterus; Z98.42 Cataract extraction status, left eye; Z98.41 Cataract extraction status, right eye; Z79.01 Long term (current) use of anticoagulants
CPT/HCPCS: 36415; 36600; 71045; 80048; 80053; 80076; 81001; 82375; 82805; 83050; 83605; 83615; 83735; 83880; 84100; 84484; 85025; 85027; 85610; 85730; 86140; 87040; 93005; 96365; 96375; 99291; A9270; J0696; J1815; J1940; J2930; J7512

== ENCOUNTER 2019-12-06 12:25 | Emergency (ER) | payer MEDICARE, MEDICAID, SELFPAY ==
--- NOTE | ~2019-12-06 | XR_ITS ---
XR chest 1V portable DATE: 12/06/2019 13:18 INDICATION: Shortness of breath TECHNIQUE: Portable upright AP chest on 12/06/2019 at 1317 hours COMPARISON: 11/19/2019 portable AP chest at 1130 hours FINDINGS: Cardiomegaly. Aortic atherosclerosis. Mild atelectasis at the lung bases. Congestive change s and bilateral infiltrates are resolved since 11/19/2019. Diffuse osteopenia. Dextroscoliosis and degenerative change of the thoracic spine. Bilateral chronic rotator cuff atrophy. IMPRESSION: Mild bibasilar atelectasis; resolution of congestive changes since 11/19/2019 Reviewed, dictated and finalized at location A.
[2019-12-06 12:31] VITALS: BP 115/59; PULSE 80; RESP 18; TEMP 37; O2SAT 97
--- NOTE | 2019-12-06 12:42 | ECG_ITS ---
Measurements Intervals [place] Rate: 56 P: DE: 0 QRS: 22 QRSD: 139 T: 10 QT: 496 QTc: 480 Interpretive Statements ATRIAL FLUTTER WITH SLOW VENTRICULAR RESPONSE RIGHT BUNDLE BRANCH BLOCK BASELINE ARTIFACT- I, II, III, AVR, AVL, AVF, V1-V6 ABNORMAL ECG Electronically Signed On 12-06-2019 14:03:46 CDT by Dane Timmons D.O.
[2019-12-06 12:48] VITALS: O2SAT 98
--- NOTE | 2019-12-06 13:00 | ED.GENADULT ---
HPI - General Adult General Chief complaint: Shortness of Breath/Dyspnea <Mau España PA-C - Last Filed: 12/06/19 15:14> Stated complaint: BREATHING PROBLEMS <Mau España PA-C - Last Filed: 12/06/19 15:14> Source: patient, RN notes reviewed and old records reviewed <Mau España PA-C - Last Filed: 12/06/19 15:14> Mode of arrival: EMS <Mau España PA-C - Last Filed: 12/06/19 15:14> Limitations: no limitations <Mau España PA-C - Last Filed: 12/06/19 15:14> History of Present Illness HPI narrative: Patient is a 84-year-old female sent to emergency department noting that the senior care was unable to get an O2 saturation on her talking that she may have some shortness of breath patient is normally on 2 L of oxygen chronically with history of heart failure on arrival to emergency department patient denies any dyspnea pain or complaints or recent dyspnea and is resting comfortably in the room in no distress alert and oriented person place and reason for being in the emergency department <Mau España PA-C - Last Filed: 12/06/19 15:14> Related Data Home medications: Home Medications Medication Instructions Recorded Confirmed Linzess See Rx Instructions .ROUTE .COMPLEX 07/04/19 11/19/19 Metamucil 1 tbsp PO DAILY 07/04/19 11/19/19 Xarelto 20 mg PO HS 07/04/19 11/19/19 acetaminophen [Tylenol] 650 mg PO QID PRN 07/04/19 11/19/19 amiodarone 200 mg PO DAILY 07/04/19 11/19/19 atorvastatin 20 mg PO HS 07/04/19 11/19/19 baclofen 10 mg PO BID 07/04/19 11/19/19 bumetanide 1 mg PO DAILY 07/04/19 11/19/19 cholecalciferol (vitamin D3) 1,000 unit PO DAILY 07/04/19 11/19/19 [Vitamin D3] fluticasone propionate 1 spray INTRANASAL DAILY 07/04/19 11/19/19 gabapentin 100 mg PO TID 07/04/19 11/19/19 gabapentin 800 mg PO TID 07/04/19 11/19/19 loratadine 10 mg PO DAILY 07/04/19 11/19/19 metoprolol succinate 50 mg PO DAILY 07/04/19 11/19/19 multivitamin with minerals [Daily 1 tablet PO DAILY 07/04/19 11/19/19 Multivitamin-Minerals] pantoprazole 40 mg PO DAILY 07/04/19 11/19/19 polyethylene glycol 3350 17 g PO HS 07/04/19 11/19/19 potassium chloride 40 meq PO HS 07/04/19 11/19/19 ropinirole 0.5 mg PO HS 07/04/19 11/19/19 <Mau España PA-C - Last Filed: 12/06/19 15:14> Allergies/adverse reactions: Allergies Allergy/AdvReac Type Severity Reaction Status Date / Time Sulfa (Sulfonamide Allergy Unknown Unknown Verified 11/19/19 16:51 Antibiotics) sulfamethizole Allergy Unknown Unknown Verified 11/19/19 16:51 sulfamethoxazole Allergy Unknown Unknown Verified 11/19/19 16:51 tramadol Allergy Unknown Unknown Verified 11/19/19 16:51 trimethoprim Allergy Unknown Unknown Verified 11/19/19 16:51 <Mau España PA-C - Last Filed: 12/06/19 15:14> Review of Systems Review of Systems: All systems reviewed & are unremarkable except as noted in HPI and below <Mau España PA-C - Last Filed: 12/06/19 15:14> [facility] Past Medical History Medical History: Medical History (HFpEF) heart failure with preserved ejection fraction Chronic atrial fibrillation On amiodarone and metoprolol. Anticoagulated with Xarelto. Colon cancer COPD (chronic obstructive pulmonary disease) Critical aortic valve stenosis With a valve area of 0.6 centimeter squared. She continues to decline surgical intervention. Diverticulitis DVT (deep venous thrombosis) GERD (gastroesophageal reflux disease) H/O coronary angiogram 2017: small vessel disease only Hyperlipidemia Hypertension, essential Obstructive sleep apnea treated with BiPAP Peripheral neuropathy Restless leg syndrome Type 2 diabetes mellitus Hemoglobin A1c was 5.8% in June 2019. Urinary incontinence <Mau España PA-C - Last Filed: 12/06/19 15:14> Surgical History Surgical History: Surgical History (Reviewed 12/06/19 @ 13:00 by Mau Olmedo
[2019-12-06 13:06] LABS: Alveolar/Arterial O2 Gradient 1.3 mmHg; Base Excess ABG 11.1 mEq/l (+/-2.0); Carboxyhemoglobin 0.7 % THb (0-2.0); Fractional Inspired Oxygen 21 %; Methemoglobin ABG 0.2 %THb (0-1.5); Oxygen Content ABG 15.5 %vol (16.0-22.0); Oxygen Saturation ABG 94.4 % (95.0-100.0); Oxyhemoglobin 93.2 % THb (90.0-100.0); PO2 ABG 73.7 mmHg (80.0-100.0); PO2 FiO2 Ratio Arterial Blood 3.51 %; Reduced Hemoglobin 5.9 %THb (0-5.0); Total Hemoglobin 11.8 g/dL (12.0-18.0); pH ABG 7.403 (7.350-7.450)
[2019-12-06 13:07] LABS: Device ROOM AIR; Modified Allen's Test Pass; PCO2 ABG 62.4 mmHg (35.0-45.0); Site Drawn RIGHT RADIAL
[2019-12-06 13:08] LABS: Basophils Percent Auto 0.3 % (0.2-1.2); Eosinophils Absolute Auto 0.1 K/mm3 (0-0.3); Eosinophils Percent Auto 1.4 % (0-4.4); Hematocrit 37.8 % (37.0-47.0); Hemoglobin 10.8 g/dL (12.0-15.0); Immature Granulocyte Absolute 0.05 K/mm3 (0.00-0.031); Immature Granulocyte Percent A 0.6 % (0-0.5); Lymphocytes Absolute Auto 1.84 K/mm3 (0.9-3.2); Lymphocytes Percent Auto 21.1 % (18.3-44.2); Mean Corpuscular HGB Conc 28.6 g/dl (32-36); Mean Corpuscular Hemoglobin 27.7 pg (26-34); Mean Corpuscular Volume 96.9 fl (80-100); Mean Platelet Volume 9.7 fl (7.4-10.4); Monocytes Percent Auto 10.9 % (2.6-8.5); Neutrophils Absolute Auto 5.7 K/mm3 (1.3-6.7); Neutrophils Percent Auto 65.7 % (45.5-73.1); Platelet Count Result 249 k/mm3 (150-375); Red Cell Distribution Width 16.6 % (11.5-14.5); White Blood Count 8.7 K/mm3 (4.5-10.0)
[2019-12-06 13:21] LABS: INR 1.7; Prothrombin Time 19.8 Seconds (11.1-14.7)
[2019-12-06 13:22] LABS: Partial Thromboplastin Time 38.3 SECONDS (22.3-36.8)
[2019-12-06 13:48] LABS: Blood Urea Nitrogen 26 mg/dL (7-17); Calcium 8.1 mg/dL (8.4-10.2); Carbon Dioxide > 40 mmol/L (22-30); Chloride 94 mmol/L (98-107); Estimated CRCL calculation 50 ml/min; Estimated Glomerular Filt Rate > 60; Glucose 146 mg/dL (65-105); Potassium 3.5 mmol/L (3.4-5.0); Sodium 137 mmol/L (137-145)
[2019-12-06 13:57] LABS: NT Pro B Type Natriuretic Pept 1860 PG/ML (5-100)
[2019-12-06 14:18] VITALS: BP 120/70; PULSE 71; RESP 20; O2SAT 100
--- NOTE | 2019-12-06 15:21 | PC.NURSE ---
spoke with patients daughter about pending discharge. ems called for transport
--- NOTE | 2019-12-06 15:24 | PC.NURSE ---
report called to cj at [facility]
[2019-12-06 17:15] VITALS: BP 122/78; PULSE 78; RESP 18; O2SAT 98
[2019-12-06 19:22] VITALS: BP 122/73; PULSE 71; RESP 18; O2SAT 98
== END 2019-12-06 19:27 | disposition short-term general hospital (02) ==
PROVIDERS: Emergency Medicine Emergency Medical Services; Emergency Provider Emergency Medicine
DX: R06.00 Dyspnea, unspecified (principal); I48.92 Unspecified atrial flutter; I45.10 Unspecified right bundle-branch block; Z79.01 Long term (current) use of anticoagulants; I50.9 Heart failure, unspecified; J44.9 Chronic obstructive pulmonary disease, unspecified; Z86.718 Personal history of other venous thrombosis and embolism; E78.5 Hyperlipidemia, unspecified; I11.0 Hypertensive heart disease with heart failure; G47.33 Obstructive sleep apnea (adult) (pediatric); E11.9 Type 2 diabetes mellitus without complications; G25.81 Restless legs syndrome; Z98.49 Cataract extraction status, unspecified eye; Z96.1 Presence of intraocular lens; Z90.49 Acquired absence of other specified parts of digestive tract; Z85.038 Personal history of other malignant neoplasm of large intestine; Z99.81 Dependence on supplemental oxygen
CPT/HCPCS: 36415; 36600; 71045; 80048; 82375; 82805; 83050; 83880; 85025; 85610; 85730; 93005; 99285

== ENCOUNTER 2019-12-25 07:18 | Inpatient (IN) | payer MEDICARE, MEDICAID, SELFPAY ==
[2019-12-25] VITALS (28 sets, daily range): BP systolic 102–142; BP diastolic 39–98; PULSE 55–72; RESP 18–38; TEMP 36–37; O2SAT 86–100; BMI 33.0
--- NOTE | ~2019-12-25 | XR_ITS ---
EXAMINATION: XR chest 1V portable DATE: 12/27/2019 10:17 INDICATION: Pneumonia. TECHNIQUE: A single frontal view of the chest was obtained. COMPARISON: Chest single view 12/25/2019, CT abdomen and pelvis 04/22/2019 FINDINGS: The lung volumes are small, which is chronic. There are interstitial opacities throughout t he lungs bilaterally. There are mild airspace opacities in the perihilar regions. No pleural effusion or pneumothorax. Cardiomegaly is noted. There are changes of posterior fusion procedure in lumbar sp ine. IMPRESSION: 1. Stable diffuse lung disease, consistent with pulmonary edema versus pneumonia. 2. Cardiomegaly. Reviewed, dictated and finalized at location A. IMPRESSION: 1. Stable diffuse lung disease, consistent with pulmonary edema versus pneumoni a. 2. Cardiomegaly.
--- NOTE | ~2019-12-25 | XR_ITS ---
XR chest 1V portable DATE: 12/25/2019 07:41 INDICATION: Shortness of breath TECHNIQUE: Portable upright AP chest on 12/21/2019 at 0738 hours COMPARISON: 12/06/2019 portable AP chest at 1317 hours FINDINGS: Cardiomegaly. There is pulmonary vascular prominence. There are bilateral pulmonary infiltr ates which dominates centrally and in the lower lung zones, suggesting pulmonary edema. Pneumonia and aspiration are additional considerations. There is bilateral low lung volume. No pleural effusion is evident. No pneumothorax. There is aortic arch calcification. Diffuse osteopenia. Rotator cuff atrophy is noted on the left; right shoulder is largely excluded. IMPRESSION: Cardiomegaly, congestive changes, probable pulmonary edema. Pneumonia is not excluded. Th e congestion and infiltrates are new since 12/06/2019 Diffuse osteopenia Reviewed, dictated and finalized at location A. IMPRESSION: Cardiomegaly, congestive changes, probable pulmonary edema. Pneumon ia is not excluded. The congestion and infiltrates are new since 12/06/2019 Diffuse osteopenia
--- NOTE | ~2019-12-25 | US_ITS ---
US right upper quadrant DATE: 12/25/2019 10:20 INDICATION: Epigastric abdominal pain TECHNIQUE: Real-time imaging of liver, gallbladder, pancreas areas; color flow and Doppler analysis. COMPARISON: 04/22/[address] abdomen pelvis FINDINGS: Normal hepatopedal portal venous flow direction. No hepatic space-occupying mass lesion is evident. The pancreas is largely obscured by bowel gas. There is gallbladder wall thickening. There are multiple stationary filling defects of the gallbladde r, without shadowing, measuring up to approximately 7 mm maximal dimension, consistent with polyps. The common bile duct measures approximately 4.4 mm diameter, within normal range. IMPRESSION: Multiple gallbladder polyps Mild gallbladder wall thickening Reviewed, dictated and finalized at [facility]. Reviewed, dictated and finalized at location [facility].
--- NOTE | 2019-12-25 07:27 | ECG_ITS ---
Measurements Intervals [place] Rate: 63 P: HI: 0 QRS: 39 QRSD: 150 T: -12 QT: 447 QTc: 459 Interpretive Statements ATRIAL FIBRILLATION RIGHT BUNDLE BRANCH BLOCK ABNORMAL ECG Electronically Signed On 12-25-2019 8:47:20 CDT by Dane Timmons D.O.
[2019-12-25 08:03] LABS: Basophils Absolute Auto 0.1 K/mm3 (0.0-0.1); Basophils Percent Auto 0.7 % (0.2-1.2); Eosinophils Absolute Auto 0.1 K/mm3 (0-0.3); Eosinophils Percent Auto 1.1 % (0-4.4); Hematocrit 40.1 % (37.0-47.0); Hemoglobin 11.7 g/dL (12.0-15.0); Immature Granulocyte Absolute 0.05 K/mm3 (0.00-0.031); Immature Granulocyte Percent A 0.4 % (0-0.5); Lymphocytes Absolute Auto 1.62 K/mm3 (0.9-3.2); Mean Corpuscular HGB Conc 29.2 g/dl (32-36); Mean Corpuscular Hemoglobin 28.7 pg (26-34); Mean Corpuscular Volume 98.5 fl (80-100); Monocytes Absolute Auto 1.4 K/mm3 (0.1-0.6); Monocytes Percent Auto 12.4 % (2.6-8.5); Neutrophils Absolute Auto 8.2 K/mm3 (1.3-6.7); Neutrophils Percent Auto 71.4 % (45.5-73.1); Platelet Count Result 273 k/mm3 (150-375); Red Blood Count 4.07 M/mm3 (4.2-5.4); Red Cell Distribution Width 15.9 % (11.5-14.5); White Blood Count 11.5 K/mm3 (4.5-10.0)
--- NOTE | 2019-12-25 08:04 | ED.ABDPAIN ---
HPI - Abdominal Pain General Chief Complaint: Abdominal Pain Stated Complaint: CP, SOB Time Seen by Provider: 12/25/19 07:26 History of Present Illness HPI narrative: Patient presents via EMS for epigastric pain and shortness of breath. Started a couple days ago, at the intermediate, and last night, she couldn't get anyone to help her. She arrived with urine incontinance. She grades her pain at 1-2/10. Associated with SOB, but no nausea or vomiting. Denies cough, fever, chills or sweats. MD elicited complaint: abdominal pain Onset (ago): day(s) Pain Consistency: constant Location: epigastric Severity: mild Pain scale (0-10): 1 Quality: aching Radiation: none Exacerbating factors: nothing Relieving factors: nothing Related Data Home Medications Medication Instructions Recorded Confirmed Linzess See Rx Instructions .ROUTE .COMPLEX 07/04/19 11/19/19 Metamucil 1 tbsp PO DAILY 07/04/19 11/19/19 Xarelto 20 mg PO HS 07/04/19 11/19/19 acetaminophen [Tylenol] 650 mg PO QID PRN 07/04/19 11/19/19 amiodarone 200 mg PO DAILY 07/04/19 11/19/19 atorvastatin 20 mg PO HS 07/04/19 11/19/19 baclofen 10 mg PO BID 07/04/19 11/19/19 cholecalciferol (vitamin D3) 1,000 unit PO DAILY 07/04/19 11/19/19 [Vitamin D3] fluticasone propionate 1 spray INTRANASAL DAILY 07/04/19 11/19/19 gabapentin 100 mg PO TID 07/04/19 11/19/19 gabapentin 800 mg PO TID 07/04/19 11/19/19 loratadine 10 mg PO DAILY 07/04/19 11/19/19 metoprolol succinate 50 mg PO DAILY 07/04/19 11/19/19 multivitamin with minerals [Daily 1 tablet PO DAILY 07/04/19 11/19/19 Multivitamin-Minerals] pantoprazole 40 mg PO DAILY 07/04/19 11/19/19 polyethylene glycol 3350 17 g PO HS 07/04/19 11/19/19 potassium chloride 40 meq PO HS 07/04/19 11/19/19 ropinirole 0.5 mg PO HS 07/04/19 11/19/19 bumetanide 2 mg PO DAILY 12/25/19 Allergies Allergy/AdvReac Type Severity Reaction Status Date / Time Sulfa (Sulfonamide Allergy Unknown Unknown Verified 12/25/19 07:42 Antibiotics) sulfamethizole Allergy Unknown Unknown Verified 12/25/19 07:42 sulfamethoxazole Allergy Unknown Unknown Verified 12/25/19 07:42 tramadol Allergy Unknown Unknown Verified 12/25/19 07:42 trimethoprim Allergy Unknown Unknown Verified 12/25/19 07:42 Review of Systems Review of Systems: Narrative: She is very hard of hearing, and can only hear me if she sees my lips. All systems reviewed & are unremarkable except as noted in HPI and below Constitutional: Constitutional: Reports no additional constitutional complaints, Denies chills, Denies fever(s) and Reports weakness Cardiovascular: Cardiovascular: Reports no additional cardiovascular complaints and Reports chest pain Respiratory: Respiratory: Denies cough and Reports dyspnea Gastrointestinal: Gastrointestinal: Reports diarrhea, Denies nausea and Denies vomiting Genitourinary: Genitourinary: Reports urinary incontinence Musculoskeletal: Musculoskeletal: Reports no additional musculoskeletal complaints [facility] Past Medical History Medical History (HFpEF) heart failure with preserved ejection fraction Chronic atrial fibrillation On amiodarone and metoprolol. Anticoagulated with Xarelto. Colon cancer COPD (chronic obstructive pulmonary disease) Critical aortic valve stenosis With a valve area of 0.6 centimeter squared. She continues to decline surgical intervention. Diverticulitis DVT (deep venous thrombosis) GERD (gastroesophageal reflux disease) H/O coronary angiogram 2017: small vessel disease only Hyperlipidemia Hypertension, essential Obstructive sleep apnea treated with BiPAP Peripheral neuropathy Restless leg syndrome Type 2 diabetes mellitus Hemoglobin A1c was 5.8% in June 2019. Urinary incontinence Surgical History Surgical History H/O hysterectomy for benign disease History of hysterectomy History of partial colectomy History of spinal ann
[2019-12-25 08:08] LABS: Add Urine Microscopic? YES; Appearance Urine Clear (Clear); Bilirubin Urine Negative (Negative); Blood Urine Negative (Negative); Color Urine Yellow (Yellow); Glucose Urine UA Negative (Negative); Ketones Urine Negative (Negative); Leukocyte Esterase Ur Negative LEU/UL (Negative); Mucus Urine Rare /lpf; Nitrate Urine Negative (Negative); Protein Urine 2+ mg/dL (Negative); Specific Grav Ur 1.023 (1.001-1.035); Squamous Epithelial Cell Urine Occasional /hpf (Few); WBC Urine 0-3 /hpf
[2019-12-25 08:20] LABS: Platelet Estimate Adequate (Adequate)
[2019-12-25 08:21] LABS: Anisocytosis 1+ (NORMAL); Hypochromasia 1+ (NORMAL); Ovalocytes 1+ (NORMAL); Poikilocytosis 1+ (NORMAL); Stomatocytes 2+ (NORMAL)
[2019-12-25 08:23] LABS: NT Pro B Type Natriuretic Pept 2620 PG/ML (5-100)
[2019-12-25 08:24] LABS: Alanine Aminotransferase 264 U/L (4-35); Albumin Level 3.9 g/dL (3.5-5.1); Alkaline Phosphatase 127 U/L (38-126); Aspartate Amino Transferase 327 U/L (14-36); Bilirubin,Total 0.4 mg/dL (0.2-1.3); Blood Urea Nitrogen 24 mg/dL (7-17); Calcium 8.9 mg/dL (8.4-10.2); Carbon Dioxide > 40 mmol/L (22-30); Chloride 95 mmol/L (98-107); Estimated CRCL calculation 50 ml/min; Estimated Glomerular Filt Rate > 60; Glucose 178 mg/dL (65-105); Potassium 4.4 mmol/L (3.4-5.0); Sodium 140 mmol/L (137-145)
[2019-12-25 08:29] LABS: Troponin I 0.033 ng/mL (0.000-0.034)
[2019-12-25] MEDS: FUROSEMIDE INJ 40 MG/4 ML VIAL IV PUSH (09:46)
[2019-12-25 10:32] LABS: Lactic Acid Reflex 2.4 mmol/L (0.7-2.1)
--- NOTE | 2019-12-25 13:04 | ADMIMU ---
This patient, Sole Al, was admitted to IMU status, and placed in Intensive Care Unit-8 at 1255. Patient/family oriented to hospital policies and general routines including ID bracelet, bed and alarms, visiting hours, pain management, procedures, bathroom and other care routines, personal items, smoking policy, room service/diet, and visiting hours. Valuables list has been completed. Information on how to activate the Rapid Response Team has been discussed. Patient/Family are encouraged to report perceived risks to care and to ask questions if they do not understand what they are told or what they should do.
[2019-12-25 13:11] LABS: Reflex Lactic Acid Yes or No Add Lactic
[2019-12-25 13:16] LABS: Troponin I 0.177 ng/mL (0.000-0.034)
--- NOTE | 2019-12-25 13:25 | ADMGEN ---
This patient, Sole Al, was admitted to Intensive Care Unit-8. Patient/family oriented to hospital policies and general routines including ID bracelet, bed and alarms, visiting hours, pain management, procedures, bathroom and other care routines, personal items, smoking policy, room service/diet, and visiting hours. Valuables list has been completed. Information on how to activate the Rapid Response Team has been discussed. Patient/Family are encouraged to report perceived risks to care and to ask questions if they do not understand what they are told or what they should do.
[2019-12-25 14:21] LABS: Lactic Acid 2.6 mmol/L (0.7-2.1)
--- NOTE | 2019-12-25 17:37 | PM.IMHP ---
H&P: HPI History of Present Illness Chief complaint: chf,pneumonia,aute cholecytitis,lactic acidosis Narrative: Sole Al is a 84 year old female who is here from [facility]. The patient was admitted here last month on 11/19/2019. With exacerbation of congestive heart failure. She had respiratory failure she has acute on chronic respiratory failure she [facility] 2 L [facility] The patient was checked for covid 19 at that time was found to be negative. Today she was also retested. Today the patient is on her usual oxygen. The [facility] so she has been back there for 1 month now. She denies any fever chills she was complaining of having some epigastric pain and shortness of breath. This started a couple days ago. She does have urinary incontinence. Her x-ray shows massive pulmonary edema and possible infiltrates today so the patient was started on Rocephin and azithromycin and she was checked for covid 19. Patient had an upper abdominal ultrasound it shows multiple gallbladder polyps. Mild wall thickening of the gallbladder. Surgery has been consulted and patient is on clear liquid diet and tolerating that well. In the emergency room. She is not having any discomfort at this time she is just incontinent of urine and were not able to measure her I and O accurately due to her incontinence. The date of service is 12/25/2019. Review of Systems Review of Systems: All systems reviewed & are unremarkable except as noted in HPI and below Constitutional: Constitutional: Reports as per HPI and Reports no additional constitutional complaints Eyes: Eyes: Reports as per HPI and Reports no additional eye complaints ENT: Reports system reviewed and no additional complaints, except as documented and Reports Normal hearing present Cardiovascular: Cardiovascular: Reports no additional cardiovascular complaints Respiratory: Respiratory: Reports no additional respiratory complaints and Reports no additional respiratory complaints Gastrointestinal: Gastrointestinal: Reports as per HPI and Reports no additional gastrointestinal complaints Musculoskeletal: Musculoskeletal: Reports no additional musculoskeletal complaints Integumentary/Breasts: Skin/Breast: Reports system reviewed and no additional complaints, except as docu and Reports as per HPI Neurologic: Reports system reviewed and no additional complaints, except as documented, Reports as per HPI and Reports Normal hearing present Psychiatric: Psychiatric: Reports no additional psychiatric complaints and Reports as per HPI Endocrine: Endocrine: Reports no additional endocrine complaints Hematologic/Lymphatic: Hematologic/Lymphatic: Reports no additional hematologic/lymphatic complaints Allergic/Immunologic: Allergic/Immunologic: Reports no additional allergic/immunologic complaints [facility] Past Medical History Medical History (HFpEF) heart failure with preserved ejection fraction Chronic atrial fibrillation On amiodarone and metoprolol. Anticoagulated with Xarelto. Colon cancer COPD (chronic obstructive pulmonary disease) Critical aortic valve stenosis With a valve area of 0.6 centimeter squared. She continues to decline surgical intervention. Diverticulitis DVT (deep venous thrombosis) GERD (gastroesophageal reflux disease) H/O coronary angiogram 2017: small vessel disease only Hyperlipidemia Hypertension, essential Obstructive sleep apnea treated with BiPAP Peripheral neuropathy Restless leg syndrome Type 2 diabetes mellitus Hemoglobin A1c was 5.8% in June 2019. Urinary incontinence Surgical History Surgical History H/O hysterectomy for benign disease History of hysterectomy History of partial colectomy History of spinal surgery History of tonsille
[2019-12-25] MEDS: RIVAROXABAN 20 MG TABLET PO (18:48)
[2019-12-25] MEDS: BACLOFEN 10 MG TABLET PO (18:49)
[2019-12-25] MEDS: BUMETANIDE INJ 1 MG/4 ML VIAL IV PUSH (18:49)
[2019-12-25] MEDS: GABAPENTIN 400 MG CAPSULE 800 MG PO (18:49)
[2019-12-25] MEDS: GABAPENTIN 100 MG CAPSULE PO (18:49)
[2019-12-25] MEDS: POTASSIUM CHLORIDE 20 MEQ TABLET.ER 40 MEQ PO (20:14)
[2019-12-25] MEDS: ATORVASTATIN 20 MG TABLET PO (20:14)
[2019-12-25] MEDS: polyethylene glycoL 3350 17 GM POWD.PACK PO (20:15)
[2019-12-25] MEDS: LORATADINE 10 MG TABLET PO (20:15)
[2019-12-25 22:31] LABS: Glucose Point of Care 161 (65-105)
[2019-12-25 23:20] LABS: Troponin I 0.267 ng/mL (0.000-0.034)
[2019-12-26] VITALS (14 sets, daily range): BP systolic 95–129; BP diastolic 56–84; PULSE 66–84; RESP 15–26; TEMP 36.3–36.6; O2SAT 96–100
[2019-12-26 05:08] LABS: Basophils Percent Auto 0.6 % (0.2-1.2); Eosinophils Absolute Auto 0.1 K/mm3 (0-0.3); Eosinophils Percent Auto 1.1 % (0-4.4); Hemoglobin 11.5 g/dL (12.0-15.0); Immature Granulocyte Absolute 0.03 K/mm3 (0.00-0.031); Immature Granulocyte Percent A 0.4 % (0-0.5); Lymphocytes Percent Auto 23.7 % (18.3-44.2); Mean Corpuscular HGB Conc 31.1 g/dl (32-36); Mean Corpuscular Hemoglobin 29.3 pg (26-34); Mean Corpuscular Volume 94.1 fl (80-100); Mean Platelet Volume 10.3 fl (7.4-10.4); Monocytes Absolute Auto 1.2 K/mm3 (0.1-0.6); Monocytes Percent Auto 17.3 % (2.6-8.5); Neutrophils Absolute Auto 4.1 K/mm3 (1.3-6.7); Neutrophils Percent Auto 56.9 % (45.5-73.1); Platelet Count Result 271 k/mm3 (150-375); Red Blood Count 3.93 M/mm3 (4.2-5.4); Red Cell Distribution Width 15.9 % (11.5-14.5); White Blood Count 7.2 K/mm3 (4.5-10.0)
--- NOTE | 2019-12-26 09:10 | PM.CNGS ---
Assessment and Plan Assessment and plan (1) Acute cholecystitis: Code(s): K81.0 - Acute cholecystitis Status: Acute Assessment and Plan: U/S suggestive of acute cholecystitis, cont abx, exam benign, low fat diet, poor surgical candidate and if needs intervention will likely proceed c perc cholecystostomy (2) Acidosis, lactic: Code(s): E87.2 - Acidosis Status: Acute Assessment and Plan: GB seems to be unlikely source, will cont to follow, cont resus (3) Pneumonia: Qualifiers: Laterality: bilateral Lung location: lower lobe of lung Pneumonia type: due to unspecified organism Qualified Code(s): J18.9 - Pneumonia, unspecified organism Code(s): J18.9 - Pneumonia, unspecified organism Status: Acute Assessment and Plan: cont abx, poor respiratory status at baseline (4) Type 2 diabetes mellitus: Code(s): E11.9 - Type 2 diabetes mellitus without complications Status: Acute (5) Chronic atrial fibrillation: Code(s): I48.20 - Chronic atrial fibrillation, unspecified Status: Acute Assessment and Plan: cont anticoagulation at this time (6) Critical aortic valve stenosis: Code(s): I35.0 - Nonrheumatic aortic (valve) stenosis Status: Acute (7) Acute respiratory failure with hypoxia and hypercarbia: Code(s): J96.01 - Acute respiratory failure with hypoxia; J96.02 - Acute respiratory failure with hypercapnia Status: Acute (8) Acute exacerbation of CHF (congestive heart failure): Code(s): I50.9 - Heart failure, unspecified Status: Acute History of Present Illness Consult details Consult date: 12/26/19 Reason for consult: abdominal pain Requesting physician: Viviane Hunter NP Narrative: Pt is a 84 y/o F c multiple med issues including CHF, COPD presenting c SOB, epigastric abd pain. Pt reports sx over last few days. Pt currently resides at [facility] and was admitted last mo c resp failure, CHF exacerbation. Pt reports epigastric pain is mod and seems to be worse after eating. Pt reports some assoc bloating, nausea. Review of Systems Constitutional: Constitutional: Denies chills, Reports fatigue, Reports lethargy and Reports weakness Eyes: Eyes: Reports no additional eye complaints ENT: Reports Normal hearing present and Denies nasal discharge Cardiovascular: Cardiovascular: Denies chest pain, Reports leg edema and Denies palpitations Respiratory: Respiratory: Reports chest congestion, Denies cough, Reports dyspnea, Reports dyspnea on exertion and Reports wheezing Gastrointestinal: Gastrointestinal: Reports abdominal pain, Denies melena, Reports bloating, Denies hematochezia, Denies constipation, Reports heartburn, Denies diarrhea, Reports nausea and Denies vomiting Musculoskeletal: Musculoskeletal: Reports myalgias and Reports stiffness Integumentary/Breasts: Skin/Breast: Denies pruritus, Denies rash and Denies wounds Neurologic: Denies confusion and Denies headache(s) Psychiatric: Psychiatric: Reports no additional psychiatric complaints PMFSH Past Medical History Medical History (HFpEF) heart failure with preserved ejection fraction Chronic atrial fibrillation On amiodarone and metoprolol. Anticoagulated with Xarelto. Colon cancer COPD (chronic obstructive pulmonary disease) Critical aortic valve stenosis With a valve area of 0.6 centimeter squared. She continues to decline surgical intervention. Diverticulitis DVT (deep venous thrombosis) GERD (gastroesophageal reflux disease) H/O coronary angiogram 2017: small vessel disease only Hyperlipidemia Hypertension, essential Obstructive sleep apnea treated with BiPAP Peripheral neuropathy Restless leg syndrome Type 2 diabetes mellitus Hemoglobin A1c was 5.8% in June 2019. Urinary incontinence Surgical History Surgical History (Reviewed 12/26/19 @ 09:15 by Julianna Vallejo
[2019-12-26] MEDS: ACETAMINOPHEN 325 MG TABLET 650 MG PO (09:37)
[2019-12-26] MEDS: PSYLLIUM POWDER PACKET 1 PACKET BY MOUTH (09:40)
[2019-12-26] MEDS: THERAPEUTIC MULTIVITAMINS/MINERALS TAB (*BKC) 1 TABLET PO (09:40)
[2019-12-26] MEDS: METOPROLOL SUCCINATE EXT REL 50 MG TABCR PO (09:40)
[2019-12-26] MEDS: PANTOPRAZOLE 40 MG TABLET PO (09:40)
[2019-12-26] MEDS: GABAPENTIN 100 MG CAPSULE PO ×3 (09:40→16:24)
[2019-12-26] MEDS: BUMETANIDE INJ 1 MG/4 ML VIAL IV PUSH ×2 (09:41→16:25)
[2019-12-26] MEDS: BACLOFEN 10 MG TABLET PO ×2 (09:41→16:24)
[2019-12-26] MEDS: CHOLECALCIFEROL 1,000 UNIT TABLET 1000 UNITS PO (09:41)
[2019-12-26] MEDS: FLUTICASONE PROPIONATE 0.05% NA SPR 16 GM BTL (*BKC) 1 SPRAY NASAL (09:41)
[2019-12-26] MEDS: GABAPENTIN 400 MG CAPSULE 800 MG PO ×3 (09:41→16:24)
[2019-12-26] MEDS: AMIODARONE HCL 200 MG TABLET PO (09:42)
[2019-12-26 09:58] LABS: Glucose Point of Care 125 (65-105)
[2019-12-26 13:33] LABS: Glucose Point of Care 243 (65-105)
[2019-12-26] MEDS: INSULIN ASPART (*BKC) 100 UNITS/ML SUB-Q (14:40)
--- NOTE | 2019-12-26 15:14 | PM.IMPN ---
Progress Note: A&P Assessment and Plan (1) Acute exacerbation of CHF (congestive heart failure): Code(s): I50.9 - Heart failure, unspecified Status: Acute Assessment and Plan: Patient is still on oxygen at 2 L per nasal cannula which she is chronically on. Pulmonary edema seen on her chest x-rays well as cardiomegaly. continue iv bumex bid, continue to watch uo and kidney function (2) Polyp of gallbladder: Code(s): K82.4 - Cholesterolosis of gallbladder Status: Acute Assessment and Plan: An ultrasound of the abdomen was performed and read by radiology as Multiple gallbladder polyps Mild gallbladder wall thickening. Surgery awaiting medical improvement before deciding on surgery (3) Pneumonia: Qualifiers: Laterality: bilateral Lung location: lower lobe of lung Pneumonia type: due to unspecified organism Qualified Code(s): J18.9 - Pneumonia, unspecified organism Code(s): J18.9 - Pneumonia, unspecified organism Status: Acute Assessment and Plan: Covid is negative continue to treat for bilateral pneumonia. The patient was empirically started on azithromycin and Rocephin. (4) Chronic atrial fibrillation: Code(s): I48.20 - Chronic atrial fibrillation, unspecified Status: Acute Assessment and Plan: Continue with amiodarone, metoprolol and Xarelto (5) Sleep apnea: Code(s): G47.30 - Sleep apnea, unspecified Status: Chronic Assessment and Plan: pt is so far negative for covid. pt can resume her cpap (6) Hyperlipidemia: Qualifiers: Hyperlipidemia type: unspecified Qualified Code(s): E78.5 - Hyperlipidemia, unspecified Code(s): E78.5 - Hyperlipidemia, unspecified Status: Chronic Assessment and Plan: Continue with Lipitor (7) Hypertension, essential: Code(s): I10 - Essential (primary) hypertension Status: Chronic Assessment and Plan: Continue with metoprolol, Pacerone, and Bumex. Subjective Date/time seen: 12/26/19 15:14 Interval history: Mikaela is a 84 year old female who is here from [facility]. The patient was admitted here last month on 11/19/2019. With exacerbation of congestive heart failure. She had respiratory failure she has acute on chronic respiratory failure she wears oxygen at 2 L per nasal cannula at the [facility] day and night. The patient was checked for covid 19 at that time was found to be negative. Today she was also retested. cxr shows pneumonia and hows massive pulmonary edema. ultrasound it shows multiple gallbladder polyps. Mild wall thickening of the gallbladder.Surgery awaiting medical improvement before deciding on surgery Review of Systems Review of Systems: ROS unobtainable: Yes unobtainable due to medical condition Exam Const: General: cooperative, healthy appearing, comfortable, no acute distress, well developed, alert, awake and Physically active Nutritional Appearance: average body habitus and well nourished Orientation/consciousness: oriented to person, oriented to place, oriented to time and patient oriented x3 Limitations: no limitations Chest: Chest palpation & inspection: normal inspection of the chest Resp: Effort & Inspection: normal respiratory effort Auscultation: clear to auscultation bilaterally Percussion: percussion normal Cardio: Palpation: normal PMI Rate: regular rate Rhythm: abnormal rhythm irregularly irregular Heart sounds: S1 normal heart sound present and S2 normal heart sound present Peripheral pulses: Peripheral pulses 2+ throughout GI: Inspection: normal to inspection Auscultation: normal bowel sounds Objective Data Vital Signs Vital Signs: Vital Signs - 24 hr 12/25/19 16:00 12/25/19 16:01 12/25/19 18:00 Temperature Pulse Rate 68 62 62 Respiratory Rate 27 H Blood Pressure 142/63 H Pulse Oximetry 97 12/25/19 20:00 12/25/19 22:00 12/26/19 00:00
[2019-12-26 15:35] LABS: Alanine Aminotransferase 179 U/L (4-35); Alkaline Phosphatase 103 U/L (38-126); Aspartate Amino Transferase 117 U/L (14-36); Bilirubin,Total 0.7 mg/dL (0.2-1.3); Blood Urea Nitrogen 14 mg/dL (7-17); Calcium 8.4 mg/dL (8.4-10.2); Carbon Dioxide > 40 mmol/L (22-30); Chloride 88 mmol/L (98-107); Estimated CRCL calculation 58 ml/min; Estimated Glomerular Filt Rate > 60; Glucose 160 mg/dL (65-105); Magnesium 1.7 mg/dL (1.6-2.3); Potassium 3.7 mmol/L (3.4-5.0); Sodium 137 mmol/L (137-145)
[2019-12-26 15:44] LABS: Troponin I 0.101 ng/mL (0.000-0.034)
[2019-12-26 17:57] LABS: Glucose Point of Care 150 (65-105)
[2019-12-26] MEDS: RIVAROXABAN 20 MG TABLET PO (19:19)
[2019-12-26] MEDS: LORATADINE 10 MG TABLET PO (20:43)
[2019-12-26] MEDS: POTASSIUM CHLORIDE 20 MEQ TABLET.ER 40 MEQ PO (20:43)
[2019-12-26] MEDS: ATORVASTATIN 20 MG TABLET PO (20:44)
[2019-12-26] MEDS: polyethylene glycoL 3350 17 GM POWD.PACK PO (20:45)
[2019-12-26 20:59] LABS: Glucose Point of Care 124 (65-105)
[2019-12-27] VITALS (13 sets, daily range): BP systolic 100–122; BP diastolic 48–92; PULSE 49–84; RESP 16–25; TEMP 36.4–36.9; O2SAT 93–99
--- NOTE | 2019-12-27 | ECHO_ITS ---
Patient Info Name: Sole Al Age: 84 years : 1935 Gender: Female Ht: 61 in Wt: 175 lbs BSA: 1.88 m2 HR: 73 bpm BP: 122 / 69 mmHg Heart Rhythm: Atrial Fibrillation Technical Quality: Good Exam Date: 12/27/2019 3:56 PM Exam Location: [facility] Patient Status: Inpatient Admit Date: 12/25/2019 Staff Ordering Physician: Viviane Hunter NP [employer] Project Manager: Beck Crowder RDCS Attending Provider: Nirali Wilson MD Referring Physician: LANAGAN, [facility] ; Exam Type: CA echo doppler color flow Study Info Indications I50.9 - Heart failure, unspecified Complete two-dimensional, color flow and Doppler transthoracic echocardiogram is performed. History/Risk Factors HFpEF, COPD, DM2. Summary 1. Normal LV size, moderate LVH, low normal LV systolic function, EF approximately 55%. Diastolic dysfunction is present. Moderate left, mild right atrial enlargement. Mild mitral annular calcification, trivial MR. Aortic valve is densely calcific with severely restricted leaflet mobility, severe aortic stenosis, calculated CHRISTAL 0.7 cm2 with relatively low mean gradient of 16 mmHg; v max 2.6 m/sec. [id number] TR, moderate pulmonary hypertension, RVSP 46 mmHg. Left Ventricle Left ventricular chamber dimension is normal. Left ventricular systolic function is normal, estimated at 50-55%. There is moderately increased left ventricular wall thickness. The left ventricular diastolic function is abnormal. Left Atria Left atrial chamber dimension is moderately enlarged. Right Atria Right atrial chamber dimension is mildly enlarged. Aortic Valve There is severe aortic valve stenosis with a peak velocity of 293 cm/s, mean gradient of 17 mmHg, and aortic valve area of 0.6 cm2. There is severe aortic valve calcification. Pulmonic Valve The pulmonic valve is not well visualized. Mitral Valve The mitral valve has thickened leaflets. There is trace mitral valve regurgitation. The mitral valve annulus is mildly calcified. Tricuspid Valve The tricuspid valve leaflets are normal. There is mild to moderate tricuspid valve regurgitation. Moderate pulmonary hypertension, estimated pulmonary arterial systolic pressure is 46 mmHg. Aorta There is mild aortic atherosclerosis. Left Ventricular Outflow Tract Name Value Normal LVOT 2D LVOT Diameter 1.9 cm LVOT Doppler LVOT Peak Gradient 2 mmHg LVOT Mean Gradient 1 mmHg LVOT VTI 12 cm LVOT VTI/AV VTI Ratio 0.2 LVOT Stroke Volume 36 ml LVOT CO 2.5 l/min LVOT CI 1.3 l/min/m2 Mitral Valve Name Value Normal MV Doppler MV Decel [place] 754 cm/s2 MV PHT
[2019-12-27 04:03] LABS: Hematocrit 37.5 % (37.0-47.0); Hemoglobin 11.4 g/dL (12.0-15.0); Mean Corpuscular HGB Conc 30.4 g/dl (32-36); Mean Corpuscular Hemoglobin 28.9 pg (26-34); Mean Corpuscular Volume 94.9 fl (80-100); Mean Platelet Volume 10.1 fl (7.4-10.4); Platelet Count Result 276 k/mm3 (150-375); Red Blood Count 3.95 M/mm3 (4.2-5.4); Red Cell Distribution Width 15.7 % (11.5-14.5); White Blood Count 7.6 K/mm3 (4.5-10.0)
[2019-12-27 04:14] LABS: Blood Urea Nitrogen 12 mg/dL (7-17); Calcium 8.6 mg/dL (8.4-10.2); Carbon Dioxide > 40 mmol/L (22-30); Chloride 86 mmol/L (98-107); Estimated CRCL calculation 58 ml/min; Estimated Glomerular Filt Rate > 60; Glucose 136 mg/dL (65-105); Sodium 134 mmol/L (137-145)
[2019-12-27 06:51] LABS: Alveolar/Arterial O2 Gradient 48.7 mmHg; Fractional Inspired Oxygen 28 %; HCO3 ABG 41.3 mEq/l (22.0-26.0); Oxygen Content ABG 15.8 %vol (16.0-22.0); Oxygen Saturation ABG 94.4 % (95.0-100.0); Oxyhemoglobin 93.2 % THb (90.0-100.0); PO2 ABG 73.1 mmHg (80.0-100.0); PO2 FiO2 Ratio Arterial Blood 2.61 %; pH ABG 7.414 (7.350-7.450)
[2019-12-27 06:53] LABS: Device NASAL CANNULA; Site Drawn RIGHT BRACHIAL
[2019-12-27] MEDS: BUMETANIDE INJ 1 MG/4 ML VIAL IV PUSH ×2 (09:10→16:29)
[2019-12-27] MEDS: GABAPENTIN 400 MG CAPSULE 800 MG PO ×3 (09:11→16:29)
[2019-12-27] MEDS: METOPROLOL SUCCINATE EXT REL 50 MG TABCR PO (09:11)
[2019-12-27] MEDS: BACLOFEN 10 MG TABLET PO ×2 (09:11→16:29)
[2019-12-27] MEDS: THERAPEUTIC MULTIVITAMINS/MINERALS TAB (*BKC) 1 TABLET PO (09:11)
[2019-12-27] MEDS: PSYLLIUM POWDER PACKET 1 PACKET BY MOUTH (09:11)
[2019-12-27] MEDS: CHOLECALCIFEROL 1,000 UNIT TABLET 1000 UNITS PO (09:11)
[2019-12-27] MEDS: FLUTICASONE PROPIONATE 0.05% NA SPR 16 GM BTL (*BKC) 1 SPRAY NASAL (09:11)
[2019-12-27] MEDS: AMIODARONE HCL 200 MG TABLET PO (09:11)
[2019-12-27] MEDS: PANTOPRAZOLE 40 MG TABLET PO (09:12)
[2019-12-27] MEDS: GABAPENTIN 100 MG CAPSULE PO ×3 (09:12→16:29)
--- NOTE | 2019-12-27 09:31 | PM.PNGS ---
Progress Note: A&P Assessment and Plan (1) Acute cholecystitis: Code(s): K81.0 - Acute cholecystitis Status: Acute Assessment and Plan: exam benign, misty diet, cont conservative tx for now c serial exams, poor surgical candidate, will need perc cholecystostomy if intervention needed (2) Acute exacerbation of CHF (congestive heart failure): Code(s): I50.9 - Heart failure, unspecified Status: Acute (3) Pneumonia: Code(s): J18.9 - Pneumonia, unspecified organism Status: Resolved (4) Type 2 diabetes mellitus with hyperglycemia: Qualifiers: Diabetes mellitus [facility] insulin use: without vermin exterminator use Qualified Code(s): E11.65 - Type 2 diabetes mellitus with hyperglycemia Code(s): E11.65 - Type 2 diabetes mellitus with hyperglycemia Status: Chronic Subjective Subjective Date/Time Seen: 12/27/19 09:31 no acute issues, no abd pain, N/V, misty low fat diet Review of Systems Constitutional: Constitutional: Reports fatigue, Reports lethargy and Reports weakness Cardiovascular: Cardiovascular: Denies chest pain and Denies palpitations Respiratory: Respiratory: Reports cough and Reports dyspnea Gastrointestinal: Gastrointestinal: Denies abdominal pain, Denies bloating, Denies heartburn, Denies nausea and Denies vomiting Exam Const: General: in distress mild Resp: Auscultation: diminished lung sounds Cardio: Rate: regular rate GI: Other: s, sl dist, NT Objective Data Vital Signs Vital Signs: Vital Signs - 24 hr 12/26/19 09:40 12/26/19 09:42 12/26/19 10:00 Temperature Pulse Rate 83 83 70 Respiratory Rate Blood Pressure Pulse Oximetry 12/26/19 12:00 12/26/19 14:00 12/26/19 16:00 Temperature 36.6 C Pulse Rate 73 74 77 Respiratory Rate 23 H 17 Blood Pressure 110/56 L 120/74 Pulse Oximetry 98 96 12/26/19 18:00 12/26/19 20:00 12/26/19 22:00 Temperature 36.4 C L Pulse Rate 71 84 73 Respiratory Rate 24 H Blood Pressure 95/61 L Pulse Oximetry 99 12/27/19 00:00 12/27/19 02:00 12/27/19 04:00 Temperature 36.6 C 36.7 C Pulse Rate 76 66 82 Respiratory Rate 25 H 24 H Blood Pressure 110/63 122/69 Pulse Oximetry 98 96 12/27/19 06:00 12/27/19 08:00 12/27/19 09:11 Temperature Pulse Rate 73 70 80 Respiratory Rate 20 Blood Pressure 113/58 L Pulse Oximetry 97 Intake/Output Intake/Output: Intake & Output 12/24/19 12/25/19 12/26/19 12/27/19 23:59 23:59 23:59 23:59 Intake Total 420 1160 240 Output Total 950 3350 880 [facility] -195 -2190 -640 Meds/Results Medications: Active Medications Generic Name Dose Route Start Last Admin Trade Name Freq PRN Reason Stop Dose Admin Acetaminophen 650 mg 12/25/19 17:54 12/26/19 09:37 Tylenol Tablet PO 650 mg QID PRN Administration Fever Or Mild Pain Amiodarone HCl 200 mg 12/26/19 09:00 12/27/19 09:11 Pacerone PO 200 mg DAILY OSMANY Administration Atorvastatin Calcium 20 mg 12/25/19 21:00 12/26/19 20:44 Lipitor PO 20 mg HS OSMANY Administration Baclofen 10 mg 12/25/19 17:00 12/27/19 09:11 Lioresal Po PO 10 mg BID OSMANY Administration Bumetanide 1 mg 12/25/19 17:00 12/27/19 09:10 Bumex Inj IV PUSH 1 mg BID OSMANY Administration Dextrose 12.5 gm 12/25/19 20:33 Dextrose 50% Syringe IV PUSH PRN PRN Hypoglycemia Protocol Fluticasone Propionate 1 spray 12/26/19 09:00 12/27/19 09:11 Flonase 0.05% Nasal [place] NASAL 1 spray DAILY OSMANY Administration Gabapentin 800 mg 12/25/19 17:00 12/27/19 09:11 Neurontin PO 800 mg TID OSMANY Administration Gabapentin 100 mg 12/25/19 17:00 12/27/19 09:12 Neurontin PO 100 mg TID OSMANY Administration Glucagon 1 mg 12/25/19 20:33 Glucagon For Inj IM PRN PRN Hypoglycemia Protocol Glucose 15 gm 12/25/19 20:33 Glutose 15 PO PRN PRN Hypoglycemia Protocol Azithromycin 50
[2019-12-27 09:46] LABS: D Dimer 1.11 ug/mL (<0.48)
[2019-12-27 10:44] LABS: CRP 4.2 mg/dL (<1.0)
[2019-12-27 11:33] LABS: Glucose Point of Care 240 (65-105)
[2019-12-27] MEDS: ACETAMINOPHEN 325 MG TABLET 650 MG PO (11:52)
[2019-12-27] MEDS: INSULIN ASPART (*BKC) 100 UNITS/ML SUB-Q (12:24)
[2019-12-27 15:31] LABS: SARS-CoV-2 RNA PCR Negative
--- NOTE | 2019-12-27 17:39 | PM.IMPN ---
Progress Note: A&P Assessment and Plan (1) Acute exacerbation of CHF (congestive heart failure): Code(s): I50.9 - Heart failure, unspecified Status: Acute Assessment and Plan: Patient is still on oxygen at 2 L per nasal cannula which she is chronically on. Pulmonary edema seen on her chest x-rays well as cardiomegaly. continue iv bumex bid, continue to watch uo and kidney function Mikaela is a 84 year old female who is here from [facility]. The patient was admitted here last month on 11/19/2019. With exacerbation of congestive heart failure. She had respiratory failure she has acute on chronic respiratory failure she wears oxygen at 2 L per nasal cannula at the long term day and night. The patient was checked for covid 19 at that time was found to be negative. Today she was also retested. cxr shows pneumonia and hows massive pulmonary edema. ultrasound it shows multiple gallbladder polyps. Mild wall thickening of the gallbladder. Patient was seen by surgery today does not recommend any surgical intervention and recommending conservative management with low-fat diet however her symptoms persist patient may need need perc cholecystostomy, patient still in pain and somnolent, denies any abdominal pain did eat her breakfast, denies any fever or chills, (2) Polyp of gallbladder: Code(s): K82.4 - Cholesterolosis of gallbladder Status: Acute Assessment and Plan: An ultrasound of the abdomen was performed and read by radiology as Multiple gallbladder polyps Mild gallbladder wall thickening. Surgery awaiting medical improvement before deciding on surgery, plan is above (3) Pneumonia: Qualifiers: Laterality: bilateral Lung location: lower lobe of lung Pneumonia type: due to unspecified organism Qualified Code(s): J18.9 - Pneumonia, unspecified organism Code(s): J18.9 - Pneumonia, unspecified organism Status: Acute Assessment and Plan: Covid is negative continue to treat for bilateral pneumonia. The patient was empirically started on azithromycin and Rocephin. Repeat chest x-ray today shows stable pneumonia will continue present management (4) Chronic atrial fibrillation: Code(s): I48.20 - Chronic atrial fibrillation, unspecified Status: Acute Assessment and Plan: Continue with amiodarone, metoprolol and Xarelto (5) Sleep apnea: Code(s): G47.30 - Sleep apnea, unspecified Status: Chronic Assessment and Plan: pt is so far negative for covid. pt can resume her cpap (6) Hyperlipidemia: Qualifiers: Hyperlipidemia type: unspecified Qualified Code(s): E78.5 - Hyperlipidemia, unspecified Code(s): E78.5 - Hyperlipidemia, unspecified Status: Chronic Assessment and Plan: Continue with Lipitor (7) Hypertension, essential: Code(s): I10 - Essential (primary) hypertension Status: Chronic Assessment and Plan: Continue with metoprolol, Pacerone, and Bumex. Subjective Date/time seen: 12/27/19 17:39 Interval history: Mikaela is a 84 year old female who is here from [facility]. The patient was admitted here last month on 11/19/2019. With exacerbation of congestive heart failure. She had respiratory failure she has acute on chronic respiratory failure she wears oxygen at 2 L per nasal cannula at the long term day and night. The patient was checked for covid 19 at that time was found to be negative. Today she was also retested. cxr shows pneumonia and hows massive pulmonary edema. ultrasound it shows multiple gallbladder polyps. Mild wall thickening of the gallbladder. Patient was seen by surgery today does not recommend any surgical intervention and recommending conservative management with low-fat diet however her symptoms persist patient may need need perc cholecystostomy, patient still in pain and somnolent, denies any abdominal pain did eat her break
--- NOTE | 2019-12-27 17:43 | PC.NURSE ---
This patient, Sole Al, was transferred to [ ] on 12/27/19 at 1743. Personal belongings sent with patient. Belongings list checked and signed with receiving [ ]. Report given to [ GWYN Davila ]. Appropriate documentation sent with patient.
--- NOTE | 2019-12-27 19:43 | PC.NURSE ---
This patient, Sole Al, was received from ICU on 12/27/19 at 1600. Arlette Kim RN gave report to Amanda Spencer RN Personal belongings list checked and signed. Patient/family oriented to unit policies and routines
[2019-12-27 19:56] LABS: Glucose Point of Care 78 (65-105)
--- NOTE | 2019-12-27 20:25 | PC.NURSE ---
Upon entering room @2009 patient lethargic and responsive only to deep, sternal rub. Heart rate 46 and irregular per palpation of right carotid pulse. Apical pulse difficult to auscultate r/t lung sounds coarse, and bilateral radial pulses weak and easily obliterated. KEITH bilaterally. Bilateral pupils 3+. After assessment was complete, patient became more alert and oriented to person and place and able to state that it is May but unsure of day or year. Speech clear. No facial droop. Able to move all extremities equally with some generalized weakness noted. notified of patient's condition, heart rate, change in neurological status and episode of lethargy. Orders received and noted.
--- NOTE | 2019-12-27 20:36 | ECG_ITS ---
Measurements Intervals [place] Rate: 79 P: [place]: 0 QRS: 68 QRSD: 169 T: -21 QT: 468 QTc: 539 Interpretive Statements ATRIAL FIBRILLATION RIGHT BUNDLE BRANCH BLOCK ABNORMAL ECG Electronically Signed On 12-28-2019 7:10:33 CDT by Dane Timmons D.O.
[2019-12-27] MEDS: POTASSIUM CHLORIDE 20 MEQ TABLET.ER 40 MEQ PO (20:50)
[2019-12-27] MEDS: ATORVASTATIN 20 MG TABLET PO (20:51)
[2019-12-27] MEDS: RIVAROXABAN 20 MG TABLET PO (20:51)
[2019-12-27] MEDS: LORATADINE 10 MG TABLET PO (20:51)
[2019-12-27 21:35] LABS: Alveolar/Arterial O2 Gradient 3.5 mmHg; Base Excess ABG 14.5 mEq/l (+/-2.0); Fractional Inspired Oxygen 28 %; HCO3 ABG 42.8 mEq/l (22.0-26.0); Oxygen Content ABG 16.8 %vol (16.0-22.0); Oxygen Saturation ABG 97.7 % (95.0-100.0); Oxyhemoglobin 96.3 % THb (90.0-100.0); PO2 ABG 109.3 mmHg (80.0-100.0); Total Hemoglobin 12.3 g/dL (12.0-18.0); pH ABG 7.382 (7.350-7.450)
[2019-12-27 21:37] LABS: Device NASAL CANNULA; Modified Allen's Test Pass; PCO2 ABG 73.6 mmHg (35.0-45.0); Site Drawn LEFT RADIAL
[2019-12-28] VITALS: BP 102/78; PULSE 90; RESP 20; TEMP 36.3; O2SAT 100
[2019-12-28 06:09] LABS: Basophils Percent Auto 0.6 % (0.2-1.2); Eosinophils Absolute Auto 0.2 K/mm3 (0-0.3); Eosinophils Percent Auto 3.1 % (0-4.4); Hematocrit 35.5 % (37.0-47.0); Hemoglobin 10.8 g/dL (12.0-15.0); Immature Granulocyte Absolute 0.02 K/mm3 (0.00-0.031); Immature Granulocyte Percent A 0.3 % (0-0.5); Lymphocytes Absolute Auto 1.35 K/mm3 (0.9-3.2); Lymphocytes Percent Auto 19.9 % (18.3-44.2); Mean Corpuscular HGB Conc 30.4 g/dl (32-36); Mean Corpuscular Hemoglobin 28.6 pg (26-34); Mean Corpuscular Volume 93.9 fl (80-100); Mean Platelet Volume 9.6 fl (7.4-10.4); Monocytes Absolute Auto 1.2 K/mm3 (0.1-0.6); Monocytes Percent Auto 17.1 % (2.6-8.5); Platelet Count Result 266 k/mm3 (150-375); Red Blood Count 3.78 M/mm3 (4.2-5.4); Red Cell Distribution Width 15.4 % (11.5-14.5); White Blood Count 6.8 K/mm3 (4.5-10.0)
[2019-12-28 06:22] LABS: Alanine Aminotransferase 125 U/L (4-35); Albumin Level 3.5 g/dL (3.5-5.1); Alkaline Phosphatase 93 U/L (38-126); Aspartate Amino Transferase 67 U/L (14-36); Bilirubin,Total 0.7 mg/dL (0.2-1.3); Blood Urea Nitrogen 15 mg/dL (7-17); Calcium 8.5 mg/dL (8.4-10.2); Carbon Dioxide > 40 mmol/L (22-30); Chloride 88 mmol/L (98-107); Estimated CRCL calculation 50 ml/min; Estimated Glomerular Filt Rate > 60; Glucose 107 mg/dL (65-105); Potassium 4.1 mmol/L (3.4-5.0); Sodium 134 mmol/L (137-145)
[2019-12-28 08:50] VITALS: O2SAT 97
[2019-12-28 08:55] LABS: Alveolar/Arterial O2 Gradient 18.3 mmHg; Base Excess ABG 16.3 mEq/l (+/-2.0); Fractional Inspired Oxygen 28 %; HCO3 ABG 44.4 mEq/l (22.0-26.0); Oxygen Content ABG 16.3 %vol (16.0-22.0); Oxygen Saturation ABG 96.8 % (95.0-100.0); Oxyhemoglobin 95.8 % THb (90.0-100.0); PO2 ABG 94.1 mmHg (80.0-100.0); PO2 FiO2 Ratio Arterial Blood 3.36 %; pH ABG 7.397 (7.350-7.450)
[2019-12-28 08:56] LABS: PCO2 ABG 73.9 mmHg (35.0-45.0); Site Drawn RIGHT RADIAL
[2019-12-28 08:57] LABS: Device NASAL CANNULA; Modified Allen's Test Pass
[2019-12-28 09:16] VITALS: PULSE 90
[2019-12-28] MEDS: BUMETANIDE INJ 1 MG/4 ML VIAL IV PUSH (09:16)
[2019-12-28] MEDS: BACLOFEN 10 MG TABLET PO (09:16)
[2019-12-28] MEDS: AMIODARONE HCL 200 MG TABLET PO (09:16)
[2019-12-28] MEDS: FLUTICASONE PROPIONATE 0.05% NA SPR 16 GM BTL (*BKC) 1 SPRAY NASAL (09:16)
[2019-12-28] MEDS: CHOLECALCIFEROL 1,000 UNIT TABLET 1000 UNITS PO (09:16)
[2019-12-28] MEDS: GABAPENTIN 100 MG CAPSULE PO ×2 (09:17→13:03)
[2019-12-28] MEDS: GABAPENTIN 400 MG CAPSULE 800 MG PO ×2 (09:17→13:03)
[2019-12-28 09:18] VITALS: PULSE 90
[2019-12-28] MEDS: PANTOPRAZOLE 40 MG TABLET PO (09:18)
[2019-12-28] MEDS: PSYLLIUM POWDER PACKET 1 PACKET BY MOUTH (09:18)
[2019-12-28] MEDS: THERAPEUTIC MULTIVITAMINS/MINERALS TAB (*BKC) 1 TABLET PO (09:18)
[2019-12-28] MEDS: METOPROLOL SUCCINATE EXT REL 50 MG TABCR PO (09:18)
[2019-12-28 09:53] LABS: Glucose Point of Care 109 (65-105)
[2019-12-28 12:42] LABS: Glucose Point of Care 307 (65-105)
[2019-12-28] MEDS: INSULIN ASPART (*BKC) 100 UNITS/ML SUB-Q (13:03)
--- NOTE | 2019-12-28 13:12 | PM.DS ---
DS: Diagnosis Admitting Diagnosis Admitting Diagnosis: Heart failure, unspecified Discharge Diagnosis (1) Acute exacerbation of CHF (congestive heart failure): Code(s): I50.9 - Heart failure, unspecified Status: Acute Assessment and Plan: Seems to be back at baseline Transition to oral Bumex Return to [facility] (2) Polyp of gallbladder: Code(s): K82.4 - Cholesterolosis of gallbladder Status: Acute Assessment and Plan: No surgical intervention at this time (3) Pneumonia: Qualifiers: Laterality: bilateral Lung location: lower lobe of lung Pneumonia type: due to unspecified organism Qualified Code(s): J18.9 - Pneumonia, unspecified organism Code(s): J18.9 - Pneumonia, unspecified organism Status: Acute Assessment and Plan: Abnormality on chest x-ray thought to be pulmonary edema and not pneumonia Antibiotics discontinued (4) Chronic atrial fibrillation: Code(s): I48.20 - Chronic atrial fibrillation, unspecified Status: Acute Assessment and Plan: Continue with amiodarone, metoprolol and Xarelto and amiodarone (5) Sleep apnea: Code(s): G47.30 - Sleep apnea, unspecified Status: Chronic Assessment and Plan: Continue home CPAP (6) Hyperlipidemia: Qualifiers: Hyperlipidemia type: unspecified Qualified Code(s): E78.5 - Hyperlipidemia, unspecified Code(s): E78.5 - Hyperlipidemia, unspecified Status: Chronic Assessment and Plan: Continue with Lipitor (7) Hypertension, essential: Code(s): I10 - Essential (primary) hypertension Status: Chronic Assessment and Plan: Continue with metoprolol, Pacerone, and Bumex. DS: Summary Hospital Course Reason for hospitalization: Dyspnea Hospital Course: Admitted from [facility] with dyspnea and bilateral pulmonary infiltrates. Treated empirically with azithromycin and ceftriaxone as well as IV Bumex for diuresis. She was never febrile and had only mild leukocytosis that immediately resolved with diuresis. She has known severe aortic stenosis with normal left ventricular ejection fraction. Echocardiogram confirmed normal left ventricular ejection fraction with 0.7 sq cm valve area. She tested negative for COVID-19 RNA. By day of discharge she was at her baseline mental status. She was tolerating her diet. She and her family had previously declined surgical intervention for her severe aortic stenosis. Care coordination contacted the patient's daughter on day of discharge and she confirms that they continue to wish no further evaluation or surgical intervention. She was to remain on DNR status. Time Spent with Patient Time attestation: Total time spent providing and/or coordinating discharge services: Exam Narrative: Exam Narrative: HEENT: EOMI, PERRL, sclerae nonicteric, pharyngeal mucosa pink and intact NECK: No JVD, adenopathy, or thyromegaly CHEST: Clear to auscultation. Normal effort. HEART: NL S1/S2, regular, no murmur ABDOMEN: BS+, soft, nontender, no mass, no bruits EXTREMITIES: No cyanosis, edema, or clubbing NEUROLOGIC: CN intact and symmetric to inspection. MUSCULOSKELETAL: Tone and strength symmetric. PSYCH: Alert. Oriented to person, place, and time. DS: Data Data Completed and Pending Labs on day of discharge: Labs from last 24 hours 12/28/19 12/28/19 12/28/19 12:40 09:11 08:50 WBC RBC Hgb Hct MCV MCH MCHC RDW Plt Count MPV Immature Gran % (Auto) Neut % (Auto) Lymph % (Auto) [place] % (Auto) Eos % (Auto) Baso % (Auto) Lymph # (Auto) [place] # (Auto) Eos # (Auto) Baso # (Auto) Abs Immat Gran (auto) Absolute Neuts (auto) Absolute Nucleated RBC Nucleated RBC % Puncture Site Right radial ABG pH 7.397 ABG pCO2 73.9 H* ABG pO2 94.1 ABG PO2/FiO2 Ratio 3.36 ABG HCO3 44.4 H ABG O2 Saturation 96.8
[2019-12-28 14:00] VITALS: BP 100/51; PULSE 88; RESP 18; TEMP 36.7; O2SAT 99
[2019-12-28] MEDS: BUMETANIDE 1 MG TABLET PO (14:55)
== END 2019-12-28 15:10 | DRG 291 ==
LOC: ANHED 08:07 → ANHICU 13:02 → ANH3MEDSUR 12-28 10:22 → ANHICU 12-30 13:06
PROVIDERS: Family Medicine; Nurse Practitioner; Admitting Provider Family Medicine; Emergency Provider Emergency Medicine; Visit Provider Internal Medicine
DX: I11.0 Hypertensive heart disease with heart failure (principal); J96.20 Acute and chronic respiratory failure, unspecified whether with hypoxia or hypercapnia; E87.2 Acidosis; I48.20 Chronic atrial fibrillation, unspecified; I50.9 Heart failure, unspecified; E11.42 Type 2 diabetes mellitus with diabetic polyneuropathy; K82.4 Cholesterolosis of gallbladder; J44.9 Chronic obstructive pulmonary disease, unspecified; Z20.828 Contact with and (suspected) exposure to other viral communicable diseases; G47.33 Obstructive sleep apnea (adult) (pediatric); E78.5 Hyperlipidemia, unspecified; I35.0 Nonrheumatic aortic (valve) stenosis; K21.9 Gastro-esophageal reflux disease without esophagitis; Z66 Do not resuscitate; Z87.891 Personal history of nicotine dependence; Z99.81 Dependence on supplemental oxygen; Z79.01 Long term (current) use of anticoagulants; Z79.899 Other long term (current) drug therapy; Z85.038 Personal history of other malignant neoplasm of large intestine; Z86.718 Personal history of other venous thrombosis and embolism; Z88.2 Allergy status to sulfonamides
CPT/HCPCS: 36415; 36600; 51701; 71045; 76705; 80048; 80053; 81001; 82805; 83605; 83735; 83880; 84443; 84484; 85025; 85027; 85380; 86140; 87040; 87086; 87635; 93005; 93306; 96365; 96367; 96375; 99285; A9270; J0456; J0696; J1815; J1940; U0003

== ENCOUNTER 2020-01-30 18:27 | Inpatient (IN) | payer MEDICARE, MEDICAID, SELFPAY ==
[2020-01-30] VITALS (10 sets, daily range): BP systolic 115–149; BP diastolic 66–95; PULSE 62–90; RESP 18–28; TEMP 36.3–36.4; O2SAT 78–100; BMI 31.6
--- NOTE | ~2020-01-30 | XR_ITS ---
EXAMINATION: XR chest 1V portable DATE: 01/30/2020 19:22 INDICATION: Shortness of breath and cough. TECHNIQUE: A single frontal view of the chest was obtained. COMPARISON: Chest single view 12/27/2019, CT abdomen and pelvis 05/22/2019 FINDINGS: The lung volumes are small. There are airspace opacities at the lung bases. No pleural effu yenni or pneumothorax. Cardiomegaly is noted. IMPRESSION: 1. Small lung volumes with airspace opacities at the lung bases, consistent with atelectasis versus p neumonia. 2. Cardiomegaly. Reviewed, dictated and finalized at location A. IMPRESSION: 1. Small lung volumes with airspace opacities at the lung bases, consistent wit h atelectasis versus pneumonia. 2. Cardiomegaly.
--- NOTE | 2020-01-30 18:40 | ECG_ITS ---
Measurements Intervals [place] Rate: 68 P: [place]: 0 QRS: 19 QRSD: 154 T: 238 QT: 499 QTc: 532 Interpretive Statements ATRIAL FIBRILLATION RIGHT BUNDLE BRANCH BLOCK BASELINE WANDER- I, II, III, AVL, AVF ABNORMAL ECG Electronically Signed On 01-31-2020 7:02:58 CDT by Dane Timmons D.O.
--- NOTE | 2020-01-30 18:46 | ED.GENADULT ---
HPI - General Adult General Chief complaint: Shortness of Breath/Dyspnea Stated complaint: ams Time Seen by Provider: 01/30/20 18:39 History of Present Illness HPI narrative: Patient is a 84 y/o female complaining of severe shortness of breath. She states that she has chronic SOB due to COPD and CHF, but it's worse today. She has a mild cough. She denies any fever or chest pain. She is normally on O2 at 2L NC. She was put on NRB by EMS prior to arrival. Related Data Home Medications Medication Instructions Recorded Confirmed Linzess See Rx Instructions .ROUTE .COMPLEX 07/04/19 01/30/20 Metamucil 3.4 g PO DAILY 07/04/19 01/30/20 Xarelto 20 mg PO HS 07/04/19 01/30/20 acetaminophen [Tylenol] 650 mg PO QID PRN 07/04/19 01/30/20 amiodarone 200 mg PO DAILY 07/04/19 01/30/20 atorvastatin 20 mg PO HS 07/04/19 01/30/20 baclofen 10 mg PO BID 07/04/19 01/30/20 cholecalciferol (vitamin D3) 1,000 unit PO DAILY 07/04/19 01/30/20 [Vitamin D3] fluticasone propionate 1 spray INTRANASAL DAILY 07/04/19 01/30/20 gabapentin 100 mg PO TID 07/04/19 01/30/20 gabapentin 800 mg PO TID 07/04/19 01/30/20 loratadine 10 mg PO DAILY 07/04/19 01/30/20 metoprolol succinate 50 mg PO DAILY 07/04/19 01/30/20 multivitamin with minerals [Daily 1 tablet PO DAILY 07/04/19 01/30/20 Multivitamin-Minerals] pantoprazole 40 mg PO DAILY 07/04/19 01/30/20 polyethylene glycol 3350 17 g PO HS 07/04/19 01/30/20 potassium chloride 40 meq PO HS 07/04/19 01/30/20 ropinirole 0.5 mg PO HS 07/04/19 01/30/20 ipratropium-albuterol 3 ml INHALATION QID PRN 01/30/20 01/30/20 Allergies Allergy/AdvReac Type Severity Reaction Status Date / Time Sulfa (Sulfonamide Allergy Unknown Unknown Verified 12/25/19 07:42 Antibiotics) sulfamethizole Allergy Unknown Unknown Verified 12/25/19 07:42 sulfamethoxazole Allergy Unknown Unknown Verified 12/25/19 07:42 tramadol Allergy Unknown Unknown Verified 12/25/19 07:42 trimethoprim Allergy Unknown Unknown Verified 12/25/19 07:42 Review of Systems Constitutional: Constitutional: Denies chills, Denies fever(s), Denies headache(s) and Denies weakness Eyes: Eyes: Denies blurry vision ENT: Denies headache(s) and Denies neck pain Cardiovascular: Cardiovascular: Denies chest pain and Reports dyspnea Respiratory: Respiratory: Reports cough and Reports dyspnea Gastrointestinal: Gastrointestinal: Denies abdominal pain, Denies diarrhea, Denies nausea and Denies vomiting Genitourinary: Genitourinary: Denies hematuria and Denies dysuria Musculoskeletal: Musculoskeletal: Denies back pain and Denies neck pain Neurologic: Denies headache(s) and Denies weakness [facility] Past Medical History Medical History (Updated 01/31/20 @ 13:31 by Sophy Gonzalez MD) (HFpEF) heart failure with preserved ejection fraction Chronic atrial fibrillation On amiodarone and metoprolol. Anticoagulated with Xarelto. Colon cancer COPD (chronic obstructive pulmonary disease) Critical aortic valve stenosis With a valve area of 0.6 centimeter squared. She continues to decline surgical intervention. Diverticulitis DVT (deep venous thrombosis) 2014 GERD (gastroesophageal reflux disease) H/O coronary angiogram 2017: small vessel disease only Hyperlipidemia Hypertension, essential Obstructive sleep apnea treated with BiPAP Peripheral neuropathy Restless leg syndrome Type 2 diabetes mellitus Hemoglobin A1c was 5.8% in June 2019. Urinary incontinence Surgical History Surgical History (Updated 01/31/20 @ 10:06 by Haven Arzate PA-C) H/O hysterectomy for benign disease History of hysterectomy History of partial colectomy Secondary to colon cancer History of spinal surgery History of tonsillectomy Hx of cataract removal with insertion of prosthetic lens Family History Family History (Updated 01/31/20 @ 10:06 by Haven Arzate PA-C) Sibling Diabetes mellitus Family history of cardiovascular disease Acute myocardial infarction
[2020-01-30 19:00] LABS: Alveolar/Arterial O2 Gradient 61.5 mmHg; Base Excess ABG 13.6 mEq/l (+/-2.0); Carboxyhemoglobin 0.8 % THb (0-2.0); Fractional Inspired Oxygen 36 %; HCO3 ABG 43.2 mEq/l (22.0-26.0); Methemoglobin ABG 0.2 %THb (0-1.5); Oxygen Content ABG 15.4 %vol (16.0-22.0); Oxygen Saturation ABG 95.9 % (95.0-100.0); Oxyhemoglobin 95.1 % THb (90.0-100.0); PO2 ABG 92.9 mmHg (80.0-100.0); PO2 FiO2 Ratio Arterial Blood 2.58 %; Reduced Hemoglobin 3.9 %THb (0-5.0); Total Hemoglobin 11.4 g/dL (12.0-18.0); pH ABG 7.308 (7.350-7.450)
[2020-01-30 19:04] LABS: Device NASAL CANNULA; PCO2 ABG 88.2 mmHg (35.0-45.0); Site Drawn LEFT BRACHIAL
[2020-01-30 19:52] LABS: Basophils Percent Auto 0.6 % (0.2-1.2); Eosinophils Absolute Auto 0.2 K/mm3 (0-0.3); Eosinophils Percent Auto 3.6 % (0-4.4); Hematocrit 34.8 % (37.0-47.0); Hemoglobin 10.1 g/dL (12.0-15.0); Immature Granulocyte Absolute 0.03 K/mm3 (0.00-0.031); Immature Granulocyte Percent A 0.4 % (0-0.5); Lymphocytes Absolute Auto 1.53 K/mm3 (0.9-3.2); Lymphocytes Percent Auto 22.9 % (18.3-44.2); Mean Corpuscular Hemoglobin 29.7 pg (26-34); Mean Corpuscular Volume 102.4 fl (80-100); Mean Platelet Volume 9.9 fl (7.4-10.4); Monocytes Percent Auto 14.7 % (2.6-8.5); Neutrophils Absolute Auto 3.9 K/mm3 (1.3-6.7); Neutrophils Percent Auto 57.8 % (45.5-73.1); Platelet Count Result 256 k/mm3 (150-375); Red Cell Distribution Width 16.2 % (11.5-14.5); White Blood Count 6.7 K/mm3 (4.5-10.0)
[2020-01-30 20:03] LABS: Prothrombin Time 21.8 Seconds (11.1-14.7)
[2020-01-30 20:04] LABS: Hypochromasia 1+ (NORMAL); Lactic Acid Reflex 1.2 mmol/L (0.7-2.1); Ovalocytes 1+ (NORMAL); Partial Thromboplastin Time 42.3 SECONDS (22.3-36.8); Platelet Estimate Adequate (Adequate)
[2020-01-30 20:06] LABS: Alanine Aminotransferase 42 U/L (4-35); Albumin Level 4.1 g/dL (3.5-5.1); Alkaline Phosphatase 81 U/L (38-126); Aspartate Amino Transferase 36 U/L (14-36); Bilirubin,Total 0.6 mg/dL (0.2-1.3); Blood Urea Nitrogen 27 mg/dL (7-17); Calcium 8.8 mg/dL (8.4-10.2); Carbon Dioxide > 40 mmol/L (22-30); Chloride 91 mmol/L (98-107); Estimated CRCL calculation 39 ml/min; Estimated Glomerular Filt Rate 60; Glucose 111 mg/dL (65-105); Lipase 58 U/L (23-300); Potassium 4.4 mmol/L (3.4-5.0); Sodium 137 mmol/L (137-145)
[2020-01-30 20:13] LABS: NT Pro B Type Natriuretic Pept 2700 PG/ML (5-100)
[2020-01-30 20:16] LABS: Troponin I < 0.012 ng/mL (0.000-0.034)
[2020-01-30 20:18] LABS: Add Urine Microscopic? YES; Appearance Urine Clear (Clear); Bacteria Urine Trace /hpf; Bilirubin Urine Negative (Negative); Blood Urine Negative (Negative); Color Urine Yellow (Yellow); Glucose Urine UA Negative (Negative); Hyaline Casts Urine 30-49 /lpf; Ketones Urine Negative (Negative); Leukocyte Esterase Ur Negative LEU/UL (Negative); Mucus Urine Rare /lpf; Nitrate Urine Negative (Negative); Protein Urine Negative (Negative); Specific Grav Ur 1.013 (1.001-1.035); Squamous Epithelial Cell Urine Rare /hpf (Few); Urobilinogen Urine Negative mg/dL (<2.0); WBC Urine 0-3 /hpf
[2020-01-30] MEDS: FUROSEMIDE INJ 40 MG/4 ML VIAL IV PUSH (20:20)
[2020-01-30] MEDS: methylPREDNISolone SOD SUCC 125 MG VIAL IV PUSH (20:23)
[2020-01-30 20:30] LABS: CRP 1.7 mg/dL (<1.0)
--- NOTE | 2020-01-30 20:51 | PC.NURSE ---
Pt daughter (POA) contacted at this time and updated.
[2020-01-31] VITALS (20 sets, daily range): BP systolic 91–104; BP diastolic 40–89; PULSE 59–96; RESP 13–25; TEMP 35.9–37; O2SAT 93–100
--- NOTE | 2020-01-31 00:03 | ADMIMU ---
This patient, Sole Al, was admitted to IMU status, and placed in Intensive Care Unit-4 on 01/30/2020 at 2225. Patient/family oriented to hospital policies and general routines including ID bracelet, bed and alarms, visiting hours, pain management, procedures, bathroom and other care routines, personal items, smoking policy, room service/diet, and visiting hours. Valuables list has been completed. Information on how to activate the Rapid Response Team has been discussed. Patient/Family are encouraged to report perceived risks to care and to ask questions if they do not understand what they are told or what they should do.
--- NOTE | 2020-01-31 08:30 | PM.IMHP ---
H&P: HPI History of Present Illness Chief complaint: acute respiratory failure, chf Narrative: Date of admission: 01/30/2020 Date of service: 01/31/2020 Sole Al is a 84 year old female with a PMH significant for CHF COPD, JUDIE, atrial fibrillation, critical , and multiple other comorbidities who presented to the emergency department on01/30/2020 via EMS from [facility] due to shortness of breath. At approximately 5:30 p.m. yesterday evening, she was noted to have been lethargic at the custodial. Her daughter states that she would not wake up or respond even to painful stimuli. The custodial called EMS started her on a non-rebreather. She is chronically on 2 L of oxygen during the day and BiPAP at night. She has had multiple hospitalizations recently due to shortness of breath given her advanced aortic stenosis, CHF, and obstructive sleep apnea. She has had chronically elevated CO2 ongoing since June. Her daughter believes that this causes her to have some confusion at times. She typically is alert and oriented x3. During my visit, the patient was lethargic, therefore information for this history and physical has been obtained from her daughter Vidhi who is her POA. As I was leaving the room, the patient woke up and did respond to my questions. She was able to tell me her name, date, and the year. She did know that she was in the hospital but was unclear which one. She tells me that she is not in any pain at this time. She does feel short of breath. She reports she is very fatigued. She denies any other acute concerns. She has a Keyes catheter in that is draining clear yellow urine. ABG was performed with mildly decreased pH, elevated pCO2 at 88.2, and elevated bicarbonate. Her CXR demonstrates airspace opacities at the lung bases consistent with possible pneumonia as well as cardiomegaly. Review of Systems Review of Systems: ROS unobtainable: Yes unobtainable due to mental status [facility] Past Medical History Medical History (Updated 01/31/20 @ 13:31 by Sophy Gonzalez MD) (HFpEF) heart failure with preserved ejection fraction Chronic atrial fibrillation On amiodarone and metoprolol. Anticoagulated with Xarelto. Colon cancer COPD (chronic obstructive pulmonary disease) Critical aortic valve stenosis With a valve area of 0.6 centimeter squared. She continues to decline surgical intervention. Diverticulitis DVT (deep venous thrombosis) 2014 GERD (gastroesophageal reflux disease) H/O coronary angiogram 2017: small vessel disease only Hyperlipidemia Hypertension, essential Obstructive sleep apnea treated with BiPAP Peripheral neuropathy Restless leg syndrome Type 2 diabetes mellitus Hemoglobin A1c was 5.8% in June 2019. Urinary incontinence Surgical History Surgical History (Updated 01/31/20 @ 10:06 by Haven Arzate PA-C) H/O hysterectomy for benign disease History of hysterectomy History of partial colectomy Secondary to colon cancer History of spinal surgery History of tonsillectomy Hx of cataract removal with insertion of prosthetic lens Family History Family History (Updated 01/31/20 @ 10:06 by Haven Arzate PA-C) Sibling Diabetes mellitus Family history of cardiovascular disease Acute myocardial infarction Family history of rheumatic fever Father No problems noted. Mother Acute myocardial infarction, Onset Age: 71 Other Family history of arthritis Family history of malignant neoplasm Family history of rheumatoid arthritis Hypertension Social History Social History (Updated 01/31/20 @ 10:08 by Haven Arzate PA-C) Social History: Ms. Al is a resident at [facility]. She has 4 children, 1 in his 30s by electrocution. Her daughter, Vidhi Villareal, is her healthcare power of insurance attorney. She is a DNR. Smoking status: Never smoker Alcohol intake: former Alcoh
[2020-01-31 11:10] LABS: SARS-CoV-2 RNA PCR Negative
[2020-01-31] MEDS: GABAPENTIN 300 MG CAPSULE 900 MG PO ×2 (13:03→17:31)
[2020-01-31] MEDS: BACLOFEN 10 MG TABLET PO ×2 (13:03→17:31)
[2020-01-31] MEDS: LORATADINE 10 MG TABLET PO (13:04)
[2020-01-31] MEDS: PSYLLIUM POWDER PACKET 1 PACKET PO (13:04)
[2020-01-31] MEDS: AMIODARONE HCL 200 MG TABLET PO (13:04)
[2020-01-31] MEDS: CHOLECALCIFEROL 1,000 UNIT TABLET 1000 UNITS PO (13:04)
[2020-01-31 17:09] LABS: Glucose Point of Care 209 (65-105)
[2020-01-31] MEDS: INSULIN ASPART (*BKC) 100 UNITS/ML SUB-Q (17:32)
[2020-01-31] MEDS: ALBUTEROL SULFATE (*SP) AEROSOL 1 PUFF 2 PUFF INHALATION (20:19)
[2020-01-31] MEDS: polyethylene glycoL 3350 17 GM POWD.PACK PO (20:55)
[2020-01-31] MEDS: FAMOTIDINE 20 MG/2 ML VIAL IV PUSH (20:55)
[2020-01-31] MEDS: RIVAROXABAN 20 MG TABLET PO (20:55)
[2020-01-31] MEDS: ATORVASTATIN 20 MG TABLET PO (20:55)
[2020-01-31] MEDS: DOXYCYCLINE HYCLATE 100 MG TABLET PO (20:55)
[2020-01-31 21:17] LABS: Glucose Point of Care 133 (65-105)
[2020-02-01] VITALS (12 sets, daily range): BP systolic 95–113; BP diastolic 51–70; PULSE 56–98; RESP 10–16; TEMP 35.8–36.9; O2SAT 97–99
[2020-02-01 04:57] LABS: Hematocrit 30.4 % (37.0-47.0); Hemoglobin 9.1 g/dL (12.0-15.0); Immature Granulocyte Absolute 0.02 K/mm3 (0.00-0.031); Immature Granulocyte Percent A 0.3 % (0-0.5); Lymphocytes Absolute Auto 1.33 K/mm3 (0.9-3.2); Lymphocytes Percent Auto 20.9 % (18.3-44.2); Mean Corpuscular HGB Conc 29.9 g/dl (32-36); Mean Corpuscular Hemoglobin 28.7 pg (26-34); Mean Corpuscular Volume 95.9 fl (80-100); Mean Platelet Volume 9.9 fl (7.4-10.4); Monocytes Absolute Auto 0.8 K/mm3 (0.1-0.6); Monocytes Percent Auto 12.4 % (2.6-8.5); Neutrophils Absolute Auto 4.2 K/mm3 (1.3-6.7); Neutrophils Percent Auto 66.4 % (45.5-73.1); Platelet Count Result 248 k/mm3 (150-375); Red Blood Count 3.17 M/mm3 (4.2-5.4); Red Cell Distribution Width 15.9 % (11.5-14.5); White Blood Count 6.4 K/mm3 (4.5-10.0)
[2020-02-01 05:11] LABS: Hemoglobin A1C 6.5 % (<5.7)
[2020-02-01 05:15] LABS: Alanine Aminotransferase 31 U/L (4-35); Albumin Level 3.4 g/dL (3.5-5.1); Alkaline Phosphatase 65 U/L (38-126); Aspartate Amino Transferase 27 U/L (14-36); Bilirubin,Total 0.5 mg/dL (0.2-1.3); Blood Urea Nitrogen 39 mg/dL (7-17); Calcium 8.3 mg/dL (8.4-10.2); Carbon Dioxide > 40 mmol/L (22-30); Chloride 87 mmol/L (98-107); Estimated CRCL calculation 46 ml/min; Estimated Glomerular Filt Rate > 60; Glucose 105 mg/dL (65-105); Potassium 3.8 mmol/L (3.4-5.0); Sodium 133 mmol/L (137-145)
[2020-02-01 07:53] LABS: Glucose Point of Care 92 (65-105)
[2020-02-01] MEDS: PSYLLIUM POWDER PACKET 1 PACKET PO (08:36)
[2020-02-01] MEDS: GABAPENTIN 300 MG CAPSULE 900 MG PO ×2 (08:36→15:43)
[2020-02-01] MEDS: BACLOFEN 10 MG TABLET PO ×2 (08:36→17:00)
[2020-02-01] MEDS: DOXYCYCLINE HYCLATE 100 MG TABLET PO (08:36)
[2020-02-01] MEDS: CHOLECALCIFEROL 1,000 UNIT TABLET 1000 UNITS PO (08:36)
[2020-02-01] MEDS: AMIODARONE HCL 200 MG TABLET PO (08:36)
[2020-02-01] MEDS: LORATADINE 10 MG TABLET PO (08:36)
[2020-02-01] MEDS: FAMOTIDINE 20 MG/2 ML VIAL IV PUSH (08:37)
[2020-02-01] MEDS: BUMETANIDE INJ 1 MG/4 ML VIAL IV PUSH (08:37)
[2020-02-01] MEDS: ALBUTEROL SULFATE (*SP) AEROSOL 1 PUFF 2 PUFF INHALATION ×2 (09:19→11:55)
[2020-02-01 12:05] LABS: Glucose Point of Care 217 (65-105)
[2020-02-01] MEDS: INSULIN ASPART (*BKC) 100 UNITS/ML SUB-Q (15:42)
[2020-02-01 17:10] LABS: Glucose Point of Care 116 (65-105)
--- NOTE | 2020-02-01 17:54 | PM.DS ---
DS: Admitting Diagnosis Admitting Diagnosis Admitting Diagnosis: Hypertensive heart disease with heart failure DS: Discharge Diagnosis Discharge Diagnosis (1) Acute respiratory failure with hypoxia and hypercarbia: Code(s): J96.01 - Acute respiratory failure with hypoxia; J96.02 - Acute respiratory failure with hypercapnia Status: Acute (2) Pneumonia: Qualifiers: Laterality: bilateral Lung location: lower lobe of lung Pneumonia type: due to unspecified organism Qualified Code(s): J18.9 - Pneumonia, unspecified organism Code(s): J18.9 - Pneumonia, unspecified organism Status: Acute (3) COVID-19 ruled out: Code(s): Z03.818 - Encounter for observation for suspected exposure to other biological agents ruled out Status: Acute (4) CHF (congestive heart failure): Qualifiers: Heart failure type: diastolic Heart failure chronicity: chronic Qualified Code(s): I50.32 - Chronic diastolic (congestive) heart failure Code(s): I50.9 - Heart failure, unspecified Status: Chronic (5) Obstructive sleep apnea treated with BiPAP: Code(s): G47.33 - Obstructive sleep apnea (adult) (pediatric) Status: Acute (6) COPD (chronic obstructive pulmonary disease): Qualifiers: COPD type: unspecified COPD Qualified Code(s): J44.9 - Chronic obstructive pulmonary disease, unspecified Code(s): J44.9 - Chronic obstructive pulmonary disease, unspecified Status: Chronic (7) Type 2 diabetes mellitus: Code(s): E11.9 - Type 2 diabetes mellitus without complications Status: Chronic Assessment and Plan: (8) Critical aortic valve stenosis: Code(s): I35.0 - Nonrheumatic aortic (valve) stenosis Status: Acute (9) HTN (hypertension): Qualifiers: Hypertension type: essential hypertension Qualified Code(s): I10 - Essential (primary) hypertension Code(s): I10 - Essential (primary) hypertension Status: Chronic DS: Summary Hospital Course Reason for hospitalization: Acute on chronic respiratory failure Hospital Course: Mrs. Al is an 84 y.o. female with PMH significant for chronic hypercapnic and hypoxic respiratory failureCHF, COPD, critical aortic stenosis, JUDIE, atrial fibrillation, T2DM, and multiple other comorbidities who presented to the emergency department 01/30/20 via EMS from [facility] due to dyspnea. She was lethargic at the [facility] and would not arouse to painful stimuli. EMS was activated and she was placed on a non-rebreather. She is on 2L per nasal cannula during the day and BiPAP at night. ABG at presentation revealed acidosis with CO2 of 88.2 and HCO3 of 43.2. CXR revealed small lung volumes with opacities at the bases. She was treated with IV bumex, IV solu-medrol, IV antibiotics for pneumonia, and BiPAP. She was tested for COVID-19 which was negative. She was admitted to the IMU under the hospitalist service. She improved significantly with BiPAP therapy and was back on her regular home oxygen requirement of 2 L per nasal cannula. She reported that she felt much better and was eager to return to the [facility]. I had a long discussion with the patient and her daughter about her underlying medical conditions and progression. She does not want to pursue surgical management for her critical aortic stenosis. I discussed that her respiratory failure will likely continue to worsen due to her underlying CHF, JUDIE, COPD, and critical aortic stenosis. She and her daughter would like to consider hospice/comfort care in the future and care coordination provided hospice information. Mrs. Al was stable for discharge as her dyspnea improved and she was on her home oxygen requirement. She did express that she did not feel that her BiPAP was functioning well at the [facility] so I discussed this with the [facility] RN and asked that the [facility] provider see her an
[2020-02-03 21:31] LABS: Pneumococcal Antigen Urine Not Detected (Not Detected)
[2020-02-04 18:46] LABS: Legionella pneumophila Ag Ur Not Detected (Not Detected)
== END 2020-02-01 18:36 | DRG 193 ==
LOC: ANHED 21:48 → ANHICU 01-31 02:34 → ANHIMU 02-01 02:18 → ANHICU 02-04 13:47 → ANHIMU 02-04 13:47
PROVIDERS: Emergency Medicine Emergency Medical Services; Physician Assistant; Admitting Provider Internal Medicine; Emergency Provider Emergency Medicine; PCP Family Medicine; Visit Provider Physician Assistant
DX: J18.9 Pneumonia, unspecified organism (principal); J96.01 Acute respiratory failure with hypoxia; J96.02 Acute respiratory failure with hypercapnia; J44.0 Chronic obstructive pulmonary disease with (acute) lower respiratory infection; I48.20 Chronic atrial fibrillation, unspecified; I50.32 Chronic diastolic (congestive) heart failure; I11.0 Hypertensive heart disease with heart failure; Z20.828 Contact with and (suspected) exposure to other viral communicable diseases; E11.42 Type 2 diabetes mellitus with diabetic polyneuropathy; I35.0 Nonrheumatic aortic (valve) stenosis; G47.33 Obstructive sleep apnea (adult) (pediatric); R32 Unspecified urinary incontinence; E78.5 Hyperlipidemia, unspecified; K21.9 Gastro-esophageal reflux disease without esophagitis; G25.81 Restless legs syndrome; Z99.81 Dependence on supplemental oxygen; Z79.01 Long term (current) use of anticoagulants; Z85.038 Personal history of other malignant neoplasm of large intestine; Z86.718 Personal history of other venous thrombosis and embolism; Z90.710 Acquired absence of both cervix and uterus; Z98.42 Cataract extraction status, left eye; Z98.41 Cataract extraction status, right eye; Z66 Do not resuscitate
CPT/HCPCS: 36415; 36600; 51701; 71045; 80053; 81001; 82375; 82805; 83036; 83050; 83605; 83690; 83880; 84484; 85025; 85610; 85730; 86140; 87040; 87449; 87635; 87899; 93005; 94002; 94003; 94640; 96374; 96375; 99291; A9270; C9803; J0696; J1815; J1940; J2930; U0003